=== PATIENT | male | born 1960 | race Caucasian/White ===

== ENCOUNTER 2021-12-18 09:34 | Inpatient (IN) | payer OTHER, MEDICAID, SELFPAY ==
[2021-12-18] VITALS (38 sets, daily range): BP systolic 128–200; BP diastolic 66–103; PULSE 75–99; RESP 14–42; TEMP 36.1–36.6; O2SAT 80–99; BMI 28.5; BMI 26.9
--- NOTE | 2021-12-18 | DI.RAD.S_ITS ---
PROCEDURE: XR CHEST 1V INDICATIONS: POST THORACENTISIS TECHNIQUE: One view of the chest was acquired. COMPARISON: [facility], , US THORACENTESIS, 12/18/2021, 13:38. [facility], , XR CHEST 1V, 12/18/2021, 9:48. FINDINGS: Left-sided pleural effusion has significantly decreased in the interval since prior study. No visible pneumothorax. Airspace opacities have not significantly changed. Small right pleural effusion is stable. IMPRESSION: Decreased size of left pleural effusion status post thoracentesis. No pneumothorax. Remaining findings unchanged. Dictated by: Paulie Priest M.D. on 12/18/2021 at 15:21 Approved by: Paulie Priest M.D. on 12/18/2021 at 15:22
--- NOTE | 2021-12-18 09:43 | DI.RAD.S_ITS ---
PROCEDURE: XR CHEST 1V INDICATIONS: short of breath TECHNIQUE: One view of the chest was acquired. COMPARISON: [facility], , CHEST 2 VIEW, 11/25/2017, 15:49. FINDINGS: Surgical changes and devices: None. Lungs and pleura: Bilateral patchy pulmonary infiltrates present. Blunting of both costophrenic angles noted. Low lung volumes accentuate pulmonary interstitium and heart size. Mediastinum: Mediastinal contours appear normal. Heart size is normal. Atherosclerotic vascular calcification noted in the aortic arch. Bones and chest wall: No suspicious bony lesions. Overlying soft tissues appear unremarkable. Generalized decrease in osseous mineralization noted. IMPRESSION: Patchy bilateral pulmonary infiltrates and small bibasilar pleural effusions, consistent with pneumonia Approved by: Elie Huang M.D. on 12/18/2021 at 9:42
[2021-12-18 10:12] LABS: COVID19 -Nasal RAPID POSITIVE (Negative)
--- NOTE | 2021-12-18 10:20 | ED_ITS ---
HPI - Altered Mental Status General Chief Complaint: Altered Mental Status Stated Complaint: altered mental status Time Seen by Provider: 12/18/21 09:43 Source: patient and EMS Mode of arrival: EMS History of Present Illness HPI narrative: Patient is a 61-year-old male insulin-dependent diabetic, hypertension, COPD on home O2 with 2 L, presenting today with altered mental status. EMS reports that he has had glucose problems last couple of days they have run on him further hypoglycemia. Today family reports that his glucose was 600 they gave him 20 units of NovoLog and about 35 minutes later glucose was than 16 and he was unresponsive. EMS was able to give him dextrose he was Perking up more. However he is having more increasing shortness of breath requiring 4-5 L nasal cannula. The patient denies any pain. He does report some increased shortness of breath. He has chronic infection and foot problems but does not seem to be acute. He has no abdominal pain. He has no chest pain or palpitations. He denies any worsening cough although he sounds coarse. He knows it is the year 2021 he is able to follow commands. Glucose remains low in the 50s to 60s in the emergency department he given a sandwich immediately, and is closely monitored. Patient was seen and evaluated [facility] on December 14 for similar prese ntation with hypoglycemia found to be short of breath he was monitored overnight with diuresis and albuterol. Awaiting for bed availability at that particular hospital patient eventually improved and discharged home. Related Data Allergies Allergy/AdvReac Type Severity Reaction Status Date / Time No Known Drug Allergies Allergy Verified 12/18/21 10:44 Review of Systems Review of Systems ROS Unobtainable: All systems reviewed & are unremarkable except as noted in HPI and below Constitutional Constitutional: Reports as per HPI, Reports fatigue, Denies headache(s), Reports lethargy and Denies weight gain ENT Ears, Nose, Mouth, and Throat: Denies vertigo, Denies dizziness, Denies headache(s) and Denies sore throat Cardiovascular Cardiovascular: Denies chest pain, Denies irregular heart rhythm and Reports dyspnea Respiratory Respiratory: Reports as per HPI, Reports chest congestion, Reports cough, Reports dyspnea and Reports wheezing Gastrointestinal Gastrointestinal: Denies abdominal pain, Denies nausea and Denies vomiting Genitourinary Genitourinary: Denies urinary frequency and Denies urinary hesitancy Musculoskeletal Musculoskeletal: Denies arthralgias Integumentary/Breasts Skin/Breast: Reports as per HPI and Reports wounds (chronic lower extremity wounds) Neurologic Neurologic: Denies vertigo, Denies dizziness and Denies headache(s) Endocrine Endocrine: Reports fatigue Allergic/Immunologic Allergic/Immunologic: Reports wheezing Patient History Social History Smoking Status: Former smoker alcohol intake: never Smoking Status: Current every day smoker tobacco type: cigarettes Substance Use Type: does not use Exam Initial Vital Signs Initial Vital Signs: Vital Signs Temperature 96.9 F L 12/18/21 09:34 Pulse Rate 85 12/18/21 09:34 Respiratory Rate 22 12/18/21 09:34 Blood Pressure 173/87 H 12/18/21 09:34 Pulse Oximetry 84 L 12/18/21 09:34 GENERAL: Chronically ill 61-year-old male appears older than stated age HEENT: Head atraumatic,EOMI, pupils reactive, face symmetric, [moist] mucous membranes CARDIOVASCULAR: Regular rate and rhythm without murmurs, rubs or gallops. RESPIRATORY: Coarse breath sounds bilaterally with decreased breath sounds on the left ABDOMEN: Soft, nontender. Normoactive bowel sounds all 4 quadrants. No guarding or rebound. : No CVA tenderness EXTREMITIES: Normal range of motion, no clubbing or edema. Neurovascularly intact NEUROLOGICAL: Alert and oriented x4. 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 SKIN: Chronic wounds bilateral lower extremities no erythema significant dry skin Course Orders Ordered: ED Orders 12/18/21 10:23 Blood Culture Stat 12/18/21 10:48 D Dimer Stat 12/18/21 10:58 PT [Prothrombin Time INR] Stat PTT [Partial Thromboplastin Time] Stat 12/18/21 11:20 CT head/brain wo con Stat 12/18/21 11:38 CT angio chest PE protocol Stat 12/18/21 12:45 ABG [Arterial Blood Gas] Stat 12/18/21 12:59 US thoracentesis Stat 12/18/21 13:00 Urinalysis and Microscopic Stat Urine Drug Screen, Rapid Stat Acetaminophen (Acetaminophen 325 Mg Tablet) 650 mg PO Q6HR PRN PRN Reason: pain Albuterol (Albuterol 2.5 Mg/3 Ml Neb (Adult)) 2.5 mg INH [id number] PRN PRN Reason: Shortness Of Breath Albuterol/Ipratropium (Albuterol/Ipratropium 3 Ml Ampul) 3 ml INH [id number] [facility] Enoxaparin Sodium (Enoxaparin 40 Mg/0.4 Ml Syringe) 40 mg SUBCUT DAILY [facility] Furosemide (Furosemide 40 Mg/4 Ml Vial) 40 mg IV Q12HR VIET Dextrose (D10w) 1,000 mls @ 100 mls/hr IV CONT [facility] Last Infusion: 12/18/21 15:50 Dose: 0 mls/hr Documented by: Infusion: 12/18/21 14:59 Dose: 75 mls/hr Documented by: Infusion: 12/18/21 13:30 Dose: 125 mls/hr Documented by: Infusion: 12/18/21 11:39 Dose: 150 mls/hr Documented by: Admin: 12/18/21 10:52 Dose: 100 mls/hr Documented by: MANISH Piperacillin Sod/Tazobactam (Sod 3.375 gm/ Sodium Chloride) 100 mls @ 25 mls/hr IV Q8H [facility] Azithromycin 500 mg/ Dextrose 250 mls @ 250 mls/hr IV Q24H [facility] Last Admin: 12/18/21 17:02 Dose: 250 mls/hr Documented by: SEJAL Dextrose (D10w) 250 mls @ 999 mls/hr IV PRN PRN PRN Reason: Hypoglycemia Vancomycin HCl 1,750 mg/ (Sodium Chloride) 500 mls @ 250 mls/hr IV Q12H [facility] Insulin Human Lispro (Insulin Lispro 100 Unit/Ml 3ml Vial) 0 unit SUBCUT ACHS [facility]; Protocol Prednisone (Prednisone 20 Mg Tablet) 40 mg PO DAILY [facility] Vancomycin HCl (Vancomycin Trough) 1 request [facility] Stop: 12/19/21 04:31 Vancomycin HCl (Vancomycin Peak) 1 request [facility] Stop: 12/19/21 07:01 Discontinued Medications Albuterol/Ipratropium (Albuterol/Ipratropium 3 Ml Ampul) 3 ml INH NOW ONE Stop: 12/18/21 10:34 Last Admin: 12/18/21 10:42 Dose: 3 ml Documented by: JEANA Dexamethasone (Dexamethasone 10 Mg/Ml Vial) 6 mg IV NOW ONE Stop: 12/18/21 10:22 Last Admin: 12/18/21 10:53 Dose: 6 mg Documented by: MANISH Dexamethasone (Dexamethasone 10 Mg/Ml Vial) 6 mg IV DAILY [facility] Dextrose (Dextrose 50 % In Water 25 Gm/50 Ml Syringe) 25 gm IV PRN PRN PRN Reason: Hypoglycemia Furosemide (Furosemide 40 Mg/4 Ml Vial) 20 mg IV NOW ONE Stop: 12/18/21 11:05 Last Admin: 12/18/21 12:19 Dose: 20 mg Documented by: SHASHANK Sodium Chloride (Normal Saline 0.9%) 1,000 mls @ 150 mls/hr IV CONT VIET Last Admin: 12/18/21 10:57 Dose: Not Given Documented by: MANISH Remdesivir 200 mg/ Sodium (Chloride) 250 mls @ 250 mls/hr IV NOW ONE Stop: 12/18/21 10:22 Last Infusion: 12/18/21 12:20 Dose: 0 mls/hr Documented by: Admin: 12/18/21 10:52 Dose: 250 mls/hr Documented by: MANISH Piperacillin Sod/Tazobactam (Sod 4.5 gm/ Sodium Chloride) 100 mls @ 200 mls/hr IV NOW ONE Stop: 12/18/21 11:05 Last Infusion: 12/18/21 13:07 Dose: 0 mls/hr Documented by: Infusion: 12/18/21 12:25 Dose: 200 mls/hr Documented by: Infusion: 12/18/21 12:21 Dose: 0 mls/hr Documented by: Admin: 12/18/21 12:20 Dose: 200 mls/hr Documented by: SHASHANK Remdesivir 100 mg/ Sodium (Chloride) 250 mls @ 250 mls/hr IV DAILY [facility] Stop: 12/22/21 09:59 Magnesium Sulfate (Magnesium Sulfate) 2 gm in 50 mls @ 25 mls/hr IV NOW ONE Stop: 12/18/21 18:50 Last Admin: 12/18/21 17:02 Dose: 25 mls/hr Documented by: SEJAL Cosigned by: GLORIA Potassium Chloride (Potassium Chloride 10 Meq Tab) 30 meq PO NOW ONE Stop: 12/18/21 16:53 Last Admin: 12/18/21 17:02 Dose: 30 meq Documented by: MSTEWART Vancomycin HCl (Vancomycin Per Pharmacy) 1 request MISC NOW ONE Stop: 12/18/21 15:37 Vital Signs Vital signs: Vital Signs - 8 hr 12/18/21 11:18 12/18/21 11:30 12/18/21 12:00 Pulse Rate 81 77 Respiratory Rate 24 19 Blood Pressure Pulse Oximetry 90 L 91 86 L 12/18/21 12:06 12/18/21 12:20 12/18/21 12:30 Pulse Rate 78 79 80 Respiratory Rate 17 16 32 H Blood Pressure 195/103 H 200/95 H Pulse Oximetry 93 94 97 12/18/21 12:40 12/18/21 12:45 12/18/21 13:00 Pulse Rate 80 82 81 Respiratory Rate 28 H 24 26 H Blood Pressure 168/88 H 167/89 H 168/87 H Pulse Oximetry 95 98 95 12/18/21 13:20 12/18/21 13:30 Pulse Rate 84 Respiratory Rate 24 Blood Pressure 172/96 H Pulse Oximetry 92 MDM - Altered Mental Status Lab Data Result diagrams: 12/18/21 10:10 12/18/21 10:10 Labs: Lab Results 12/18/21 12/18/21 12/18/21 Range/Units 10:00 10:10 10:10 WBC 16.6 H (4.5-11.0) X10^3/uL RBC 3.72 L (4.5-5.9) X10^6/uL Hgb 8.9 L (13.5-17.5) g/dL Hct 28.5 L (41-53) % MCV 76.8 L (80-100) fL MCH 24.0 L (26-34) PG MCHC 31.3 (30-36) % RDW 19.1 H (11.6-14.8) % Plt Count 442 H (150-400) X10^3/uL Neut % (Auto) 91.0 H (50-75) % Lymph % (Auto) 4.6 L (25-40) % Kimble % (Auto) 3.6 (3-14) % Eos % (Auto) 0.5 L (2-4) % Baso % (Auto) 0.3 (0-2) % Neut # (Auto) 89292 H (7150-2923) /uL Lymph # (Auto) 800 L (2664-3049) /uL Kimble # (Auto) 600 (0-900) /uL Eos # (Auto) 100 (0-450) /uL Baso # (Auto) 100 (0-100) /uL PT (10.1-12.7) SECONDS INR (0.9-1.3) APTT (26.4-36.2) SECONDS D-Dimer (<230) ng/mL ABG pH (7.35-7.45) ABG pCO2 (35-45) mmHg ABG pO2 (80-100) mmHg ABG HCO3 (22-26) mmol/L ABG Total CO2 (21-31) mmol/L ABG O2 Saturation (95-100) % ABG Base Excess (-2-2) mmol/L FiO2 Sodium 138 (137-145) mmol/L Potassium 3.6 (3.4-5.1) mmol/L Chloride 103 (98-107) mmol/L Carbon Dioxide 30 (22-32) mmol/L BUN 24 H (9-20) mg/dL Creatinine 0.62 L (0.66-1.25) mg/dL Estimated GFR > 60.0 (>60) mL/min BUN/Creatinine Ratio 38.7 H (6-22) Glucose 33 L* (80-110) mg/dL Hemoglobin A1c (4.0-6.0) % Lactate (0.7-2.1) mmol/L Calcium 7.7 L (8.4-10.2) mg/dL Total Bilirubin 0.3 (0.2-1.3) mg/dL AST 54 (17-59) IU/L ALT 32 (<50) IU/L Alkaline Phosphatase 142 H (38-126) U/L Total Creatine Kinase 54 L (55-170) U/L CK-MB (CK-2) TNP CK-MB (CK-2) Rel Index TNP Troponin I 0.023 (0.01-0.034) ng/mL NT-Pro-B Natriuret Pep 6700 H (<125) pg/mL Total Protein 6.8 (6.3-8.2) g/dL Albumin 2.7 L (3.5-5.0) g/dL Globulin 4.1 (1.7-4.1) g/dL Albumin/Globulin Ratio 0.7 L (1.0-2.8) Procalcitonin 0.50 (<0.5) ng/mL TSH (0.47-4.68) uIU/mL Urine Color Urine Appearance Urine pH (4.5-8.0) Ur Specific [place] (1.000-1.035) Urine Protein (Negative) Urine Glucose (UA) (Negative) g/dL Urine Ketones (NEGATIVE) Urine Occult Blood (Negative) Urine Nitrate (Negative) Urine Bilirubin (NEGATIVE) Urine Urobilinogen (0.2) E.U./dL Ur Leukocyte Esterase (NEGATIVE) Urine RBC (0-5/HPF) Urine WBC (0-5/HPF) Ur Squamous Epith Cells (0-5/HPF) Urine Bacteria (None) Ur Culture Indicated? Salicylates < 1.0 (<20) mg/dL U Opiates 300ng/mL cut (Negative) Ur Oxycodone Screen (Negative) Urine Methadone Screen (Negative) Acetaminophen < 10 (10-30) ug/mL Ur Barbiturates Screen (Negative) U Tricyclic Antidepress (Negative) Ur Phencyclidine Scrn (Negative) Ur Amphetamines Screen (Negative) U Methamphetamines Scrn (Negative) Ur MDMA Scrn (Ecstasy) (Negative) U Benzodiazepines Scrn (Negative) Urine Cocaine Screen (Negative) U Marijuana (THC) Screen (Negative) Ethyl Alcohol < 10 ( - 10) mg/dL SARS-CoV-2 (PCR) Positive H (Negative) 12/18/21 12/18/21 12/18/21 Range/Units 10:10 10:10 10:10 WBC (4.5-11.0) X10^3/uL RBC (4.5-5.9) X10^6/uL Hgb (13.5-17.5) g/dL Hct (41-53) % MCV (80-100) fL MCH (26-34) PG MCHC (30-36) % RDW (11.6-14.8) % Plt Count (150-400) X10^3/uL Neut % (Auto) (50-75) % Lymph % (Auto) (25-40) % Kimble % (Auto) (3-14) % Eos % (Auto) (2-4) % Baso % (Auto) (0-2) % Neut # (Auto) (9039-8938) /uL Lymph # (Auto) (0843-6789) /uL Kimble # (Auto) (0-900) /uL Eos # (Auto) (0-450) /uL Baso # (Auto) (0-100) /uL PT (10.1-12.7) SECONDS INR (0.9-1.3) APTT (26.4-36.2) SECONDS D-Dimer (<230) ng/mL ABG pH (7.35-7.45) ABG pCO2 (35-45) mmHg ABG pO2 (80-100) mmHg ABG HCO3 (22-26) mmol/L ABG Total CO2 (21-31) mmol/L ABG O2 Saturation (95-100) % ABG Base Excess (-2-2) mmol/L FiO2 Sodium (137-145) mmol/L Potassium (3.4-5.1) mmol/L Chloride (98-107) mmol/L Carbon Dioxide (22-32) mmol/L BUN (9-20) mg/dL Creatinine (0.66-1.25) mg/dL Estimated GFR (>60) mL/min BUN/Creatinine Ratio (6-22) Glucose (80-110) mg/dL Hemoglobin A1c 10.7 H (4.0-6.0) % Lactate 1.4 (0.7-2.1) mmol/L Calcium (8.4-10.2) mg/dL Total Bilirubin (0.2-1.3) mg/dL AST (17-59) IU/L ALT (<50) IU/L Alkaline Phosphatase (38-126) U/L Total Creatine Kinase (55-170) U/L CK-MB (CK-2) CK-MB (CK-2) Rel Index Troponin I (0.01-0.034) ng/mL NT-Pro-B Natriuret Pep (<125) pg/mL Total Protein (6.3-8.2) g/dL Albumin (3.5-5.0) g/dL Globulin (1.7-4.1) g/dL Albumin/Globulin Ratio (1.0-2.8) Procalcitonin (<0.5) ng/mL TSH 2.96 (0.47-4.68) uIU/mL Urine Color Urine Appearance Urine pH (4.5-8.0) Ur Specific [place] (1.000-1.035) Urine Protein (Negative) Urine Glucose (UA) (Negative) g/dL Urine Ketones (NEGATIVE) Urine Occult Blood (Negative) Urine Nitrate (Negative) Urine Bilirubin (NEGATIVE) Urine Urobilinogen (0.2) E.U./dL Ur Leukocyte Esterase (NEGATIVE) Urine RBC (0-5/HPF) Urine WBC (0-5/HPF) Ur Squamous Epith Cells (0-5/HPF) Urine Bacteria (None) Ur Culture Indicated? Salicylates (<20) mg/dL U Opiates 300ng/mL cut (Negative) Ur Oxycodone Screen (Negative) Urine Methadone Screen (Negative) Acetaminophen (10-30) ug/mL Ur Barbiturates Screen (Negative) U Tricyclic Antidepress (Negative) Ur Phencyclidine Scrn (Negative) Ur Amphetamines Screen (Negative) U Methamphetamines Scrn (Negative) Ur MDMA Scrn (Ecstasy) (Negative) U Benzodiazepines Scrn (Negative) Urine Cocaine Screen (Negative) U Marijuana (THC) Screen (Negative) Ethyl Alcohol ( - 10) mg/dL SARS-CoV-2 (PCR) (Negative) 12/18/21 12/18/21 12/18/21 Range/Units 10:48 10:58 12:45 WBC (4.5-11.0) X10^3/uL RBC (4.5-5.9) X10^6/uL Hgb (13.5-17.5) g/dL Hct (41-53) % MCV (80-100) fL MCH (26-34) PG MCHC (30-36) % RDW (11.6-14.8) % Plt Count (150-400) X10^3/uL Neut % (Auto) (50-75) % Lymph % (Auto) (25-40) % Kimble % (Auto) (3-14) % Eos % (Auto) (2-4) % Baso % (Auto) (0-2) % Neut # (Auto) (1434-3321) /uL Lymph # (Auto) (7237-7891) /uL Kimble # (Auto) (0-900) /uL Eos # (Auto) (0-450) /uL Baso # (Auto) (0-100) /uL PT 11.9 (10.1-12.7) SECONDS INR 1.1 (0.9-1.3) APTT 27 (26.4-36.2) SECONDS D-Dimer 2263 H (<230) ng/mL ABG pH 7.40 (7.35-7.45) ABG pCO2 45.6 H (35-45) mmHg ABG pO2 72 L (80-100) mmHg ABG HCO3 28 H (22-26) mmol/L ABG Total CO2 30 (21-31) mmol/L ABG O2 Saturation 94 L (95-100) % ABG Base Excess 3.0 H (-2-2) mmol/L FiO2 50 Sodium (137-145) mmol/L Potassium (3.4-5.1) mmol/L Chloride (98-107) mmol/L Carbon Dioxide (22-32) mmol/L BUN (9-20) mg/dL Creatinine (0.66-1.25) mg/dL Estimated GFR (>60) mL/min BUN/Creatinine Ratio (6-22) Glucose (80-110) mg/dL Hemoglobin A1c (4.0-6.0) % Lactate (0.7-2.1) mmol/L Calcium (8.4-10.2) mg/dL Total Bilirubin (0.2-1.3) mg/dL AST (17-59) IU/L ALT (<50) IU/L Alkaline Phosphatase (38-126) U/L Total Creatine Kinase (55-170) U/L CK-MB (CK-2) CK-MB (CK-2) Rel Index Troponin I (0.01-0.034) ng/mL NT-Pro-B Natriuret Pep (<125) pg/mL Total Protein (6.3-8.2) g/dL Albumin (3.5-5.0) g/dL Globulin (1.7-4.1) g/dL Albumin/Globulin Ratio (1.0-2.8) Procalcitonin (<0.5) ng/mL TSH (0.47-4.68) uIU/mL Urine Color Urine Appearance Urine pH (4.5-8.0) Ur Specific [place] (1.000-1.035) Urine Protein (Negative) Urine Glucose (UA) (Negative) g/dL Urine Ketones (NEGATIVE) Urine Occult Blood (Negative) Urine Nitrate (Negative) Urine Bilirubin (NEGATIVE) Urine Urobilinogen (0.2) E.U./dL Ur Leukocyte Esterase (NEGATIVE) Urine RBC (0-5/HPF) Urine WBC (0-5/HPF) Ur Squamous Epith Cells (0-5/HPF) Urine Bacteria (None) Ur Culture Indicated? Salicylates (<20) mg/dL U Opiates 300ng/mL cut (Negative) Ur Oxycodone Screen (Negative) Urine Methadone Screen (Negative) Acetaminophen (10-30) ug/mL Ur Barbiturates Screen (Negative) U Tricyclic Antidepress (Negative) Ur Phencyclidine Scrn (Negative) Ur Amphetamines Screen (Negative) U Methamphetamines Scrn (Negative) Ur MDMA Scrn (Ecstasy) (Negative) U Benzodiazepines Scrn (Negative) Urine Cocaine Screen (Negative) U Marijuana (THC) Screen (Negative) Ethyl Alcohol ( - 10) mg/dL SARS-CoV-2 (PCR) (Negative) 12/18/21 12/18/21 Range/Units 13:00 13:00 WBC (4.5-11.0) X10^3/uL RBC (4.5-5.9) X10^6/uL Hgb (13.5-17.5) g/dL Hct (41-53) % MCV (80-100) fL MCH (26-34) PG MCHC (30-36) % RDW (11.6-14.8) % Plt Count (150-400) X10^3/uL Neut % (Auto) (50-75) % Lymph % (Auto) (25-40) % Kimble % (Auto) (3-14) % Eos % (Auto) (2-4) % Baso % (Auto) (0-2) % Neut # (Auto) (5922-1651) /uL Lymph # (Auto) (1193-5177) /uL [place] # (Auto) (0-900) /uL Eos # (Auto) (0-450) /uL Baso # (Auto) (0-100) /uL PT (10.1-12.7) SECONDS INR (0.9-1.3) APTT (26.4-36.2) SECONDS D-Dimer (<230) ng/mL ABG pH (7.35-7.45) ABG pCO2 (35-45) mmHg ABG pO2 (80-100) mmHg ABG HCO3 (22-26) mmol/L ABG Total CO2 (21-31) mmol/L ABG O2 Saturation (95-100) % ABG Base Excess (-2-2) mmol/L FiO2 Sodium (137-145) mmol/L Potassium (3.4-5.1) mmol/L Chloride (98-107) mmol/L Carbon Dioxide (22-32) mmol/L BUN (9-20) mg/dL Creatinine (0.66-1.25) mg/dL Estimated GFR (>60) mL/min BUN/Creatinine Ratio (6-22) Glucose (80-110) mg/dL Hemoglobin A1c (4.0-6.0) % Lactate (0.7-2.1) mmol/L Calcium (8.4-10.2) mg/dL Total Bilirubin (0.2-1.3) mg/dL AST (17-59) IU/L ALT (<50) IU/L Alkaline Phosphatase (38-126) U/L Total Creatine Kinase (55-170) U/L CK-MB (CK-2) CK-MB (CK-2) Rel Index Troponin I (0.01-0.034) ng/mL NT-Pro-B Natriuret Pep (<125) pg/mL Total Protein (6.3-8.2) g/dL Albumin (3.5-5.0) g/dL Globulin (1.7-4.1) g/dL Albumin/Globulin Ratio (1.0-2.8) Procalcitonin (<0.5) ng/mL TSH (0.47-4.68) uIU/mL Urine Color Yellow Urine Appearance Clear Urine pH 6.5 (4.5-8.0) Ur Specific [place] 1.015 (1.000-1.035) Urine Protein 2+ H (Negative) Urine Glucose (UA) Negative (Negative) g/dL Urine Ketones Negative (NEGATIVE) Urine Occult Blood Trace-lysed (Negative) Urine Nitrate Negative (Negative) Urine Bilirubin Negative (NEGATIVE) Urine Urobilinogen 0.2 (0.2) E.U./dL Ur Leukocyte Esterase Negative (NEGATIVE) Urine RBC 0-1/hpf (0-5/HPF) Urine WBC 0-1/hpf (0-5/HPF) Ur Squamous Epith Cells 0-1 /hpf (0-5/HPF) Urine Bacteria None seen (None) Ur Culture Indicated? Cult not indicated Salicylates (<20) mg/dL U Opiates 300ng/mL cut Negative (Negative) Ur Oxycodone Screen Negative (Negative) Urine Methadone Screen Negative (Negative) Acetaminophen (10-30) ug/mL Ur Barbiturates Screen Negative (Negative) U Tricyclic Antidepress Negative (Negative) Ur Phencyclidine Scrn Negative (Negative) Ur Amphetamines Screen Negative (Negative) U Methamphetamines Scrn Negative (Negative) Ur MDMA Scrn (Ecstasy) Negative (Negative) U Benzodiazepines Scrn Negative (Negative) Urine Cocaine Screen Negative (Negative) U Marijuana (THC) Screen Negative (Negative) Ethyl Alcohol ( - 10) mg/dL SARS-CoV-2 (PCR) (Negative) Point of Care Testing Glucose POC 205 Imaging Data Chest x-ray: Radiologist's Impression: PROCEDURE:? XR CHEST 1V ? INDICATIONS:? short of breath ? TECHNIQUE:? One view of the chest was acquired.? ? COMPARISON:? [facility], , CHEST 2 VIEW, 11/25/2017, 15:49. ? FINDINGS:? ? Surgical changes and devices:? None.? ? Lungs and pleura:? Bilateral patchy pulmonary infiltrates present.? Blunting of both costophrenic angles noted.? Low lung volumes accentuate pulmonary interstitium and heart size. ? Mediastinum:? Mediastinal contours appear normal.? Heart size is normal.? Atherosclerotic vascular calcification noted in the aortic arch. ? Bones and chest wall:? No suspicious bony lesions.? Overlying soft tissues appear unremarkable.? Generalized decrease in osseous mineralization noted. ? IMPRESSION:? ? Patchy bilateral pulmonary infiltrates and small bibasilar pleural effusions, consistent with pneumonia ? ? ? Approved by: Elie Huang M.D. on 12/18/2021 at 9:42? CT scan - head: Radiologist's Impression: PROCEDURE:? CT HEAD/BRAIN WO CON ? INDICATIONS:? change in metal status ? TECHNIQUE:? Noncontrast 4.5 mm thick angled axial sections acquired from the foramen magnum to the vertex, with coronal and sagittal reformats.? For radiation dose reduction, the following was used:? automated exposure control, adjustment of mA and/or kV according to patient size.? ? COMPARISON:? None. ? FINDINGS:? Image quality:? Excellent.? ? CSF spaces:? Basal cisterns are patent.? No extra-axial fluid collections.? The ventricles are symmetric in size and shape.? ? Brain:? No intracranial bleeds or masses.? There is cerebral volume loss for age, with resultant ventricular and sulcal prominence.? There are periventricular and deep white matter chronic small vessel ischemic changes.? There is intracranial internal carotid artery atherosclerosis.? ? Skull and face:? Calvarium and visualized facial bones appear intact, without suspicious lesions.? ? Sinuses:? Visualized sinuses and mastoids are clear.? ? IMPRESSION:? 1. No acute intracranial abnormality. 2. Cerebral volume loss and small vessel ischemic changes.? Dictated by: Gelacio Dias M.D. on 12/18/2021 at 12:12 ? ? Approved by: Gelacio Dias M.D. on 12/18/2021 at 12:13 ? CT scan - chest: Radiologist's Impression: PROCEDURE:? CT ANGIO CHEST PE PROTOCOL ? INDICATIONS:? hypoxia covid ? TECHNIQUE:? After the administration of intravenous contrast, 2 mm thick sections acquired from the pulmonary apices to the posterior costophrenic angles.? 3-dimensional maximum intensity projection (MIP) coronal and sagittal reformats were then acquired through the thorax.? For radiation dose reduction, the following was used:? automated exposure control, adjustment of mA and/or kV according to patient size.? ? COMPARISON:? None. ? FINDINGS:? Image quality:? Excellent.? ? Pulmonary arteries:? Pulmonary arteries are normal in size, and demonstrate no intraluminal filling defects to suggest central pulmonary embolism.? ? Lungs and pleura:? Diffuse ground-glass opacities are seen consistent with patient history of COVID-19.? There is a large left pleural effusion and consolidative atelectasis versus consolidative pneumonia of the left lower lobe. ? Mediastinum:? Heart size is normal, without pericardial effusion.? The coronary arteries have atherosclerotic calcifications.? No mediastinal or hilar adenopathy.? Thoracic aorta is normal in caliber and enhancement.? Esophagus is normal in caliber, without hiatal hernia.? ? Bones and chest wall:? No suspicious bony lesions.? Ribs and thoracic spine appear intact throughout.? Thyroid gland is normal.? No axillary or supraclavicular adenopathy.? ? Abdomen:? Visualized upper abdominal solid organs appear normal in the early arterial phase of enhancement.? ? IMPRESSION:? 1. Diffuse bilateral airspace opacities consistent with patient history of COVID-19. 2. Large left pleural effusion. 3. Consolidative atelectasis versus consolidative pneumonia of the left lower lobe.? ? ? Dictated by: Gelacio Dias M.D. on 12/18/2021 at 12:13 ? ? Approved by: Gelacio Dias M.D. on 12/18/2021 at 12:16 ? ECG Data Attestation: I personally reviewed and interpreted this ECG as follows: Prior ECG tracings: not available for review Interpretation: Sinus rhythm rate 82 GA interval 172 QRS 82 QTC 436 PVC wandering baseline MDM Narrative Medical decision making narrative: The patient initially found to be hypoglycemic. He has eating glucose continues to be quite variable placed on D10 which finally does stabilize his glucose. He also is becoming more short of breath. Chest x-ray shows patchy infiltrates. CT angio was done for elevated D-dimer and worsening hypoxia which confirms large left pleural effusions. No pulmonary embolism is identified. BNP is also elevated so possible congestive heart failure as well. Patient is given Lasix. Thoracentesis is ordered at request hospitalist. The patient is placed on high- flow nasal cannula which does seem to help. He is also found to be COVID positive he is given remdesivir and dexamethasone. With leukocytosis and patchy infiltrate concern for possible pneumonia patient is given Zosyn here in the emergency department. Blood pressure remains stable lactate surprisingly 1.4 and he has a normal troponin. Patient's respiratory status and hypoglycemia have stabilized in the emergency department. Dr. Millan, accepts patient to the ICU. Discharge Plan Departure Patient Disposition: Admitted As Inpatient Clinical Impression: Hypoxia, COVID-19, Pleural effusion Admit Date/Time: 12/18/21 13:34 Admit Provider: Medardo Millan
[2021-12-18 10:22] LABS: Add Manual Diff / Slide Review NO; Basophils Absolute Auto 100 /uL (0-100); Basophils Percent Auto 0.3 % (0-2); Eosinophils Absolute Auto 100 /uL (0-450); Eosinophils Percent Auto 0.5 % (2-4); Hematocrit 28.5 % (41-53); Hemoglobin 8.9 g/dL (13.5-17.5); Lymphocytes Absolute Auto 800 /uL (1100-4500); Lymphocytes Percent Auto 4.6 % (25-40); Mean Corpuscular HGB Conc 31.3 % (30-36); Mean Corpuscular Volume 76.8 fL (80-100); Monocytes Absolute Auto 600 /uL (0-900); Monocytes Percent Auto 3.6 % (3-14); Neutrophils Absolute Auto 15100 /uL (1500-7000); Platelet Count 442 X10^3/uL (150-400); Red Blood Cell Count 3.72 X10^6/uL (4.5-5.9); Red Cell Distribution Width 19.1 % (11.6-14.8); White Blood Cell Count 16.6 X10^3/uL (4.5-11.0)
[2021-12-18 10:38] LABS: Hemoglobin A1C% w Est Avg Glu 10.7 % (4.0-6.0)
[2021-12-18 10:41] LABS: Lactate (Lactic Acid) 1.4 mmol/L (0.7-2.1)
[2021-12-18] MEDS: ALBUTEROL/IPRATROPIUM 3 ML AMPUL INH ×3 (10:42→23:45)
[2021-12-18 10:43] LABS: Acetaminophen < 10 ug/mL (10-30); Alanine Aminotransferase 32 IU/L (<50); Albumin 2.7 g/dL (3.5-5.0); Albumin Globulin Ratio 0.7 (1.0-2.8); Alkaline Phosphatase 142 U/L (38-126); Aspartate Aminotransferase 54 IU/L (17-59); BUN Creatinine Ratio 38.7 (6-22); Bilirubin Total 0.3 mg/dL (0.2-1.3); Blood Urea Nitrogen 24 mg/dL (9-20); Calcium 7.7 mg/dL (8.4-10.2); Carbon Dioxide 30 mmol/L (22-32); Chloride 103 mmol/L (98-107); Creatine Kinase 54 U/L (55-170); Estimated Glomerular Filt Rate > 60.0 mL/min (>60); Ethanol (ETOH) < 10 mg/dL; Globulin 4.1 g/dL (1.7-4.1); Potassium 3.6 mmol/L (3.4-5.1); Salicylate < 1.0 mg/dL (<20); Sodium 138 mmol/L (137-145); Total Protein 6.8 g/dL (6.3-8.2)
[2021-12-18 10:51] LABS: HEMOLYSIS 19 (0-50)
[2021-12-18] MEDS: DEXTROSE 10 % IN WATER 1,000 ML 100 ML IV (10:52)
[2021-12-18] MEDS: REMDESIVIR 200 MG in SODIUM CHLORIDE 0.9% 210 ML 250 ML IV (10:52)
[2021-12-18 10:53] LABS: Glucose 33 mg/dL (80-110)
[2021-12-18] MEDS: DEXAMETHASONE 10 MG/ML VIAL 6 MG IV (10:53)
[2021-12-18 10:56] LABS: NT-proBNP (BNP-Adult 18+) 6700 pg/mL (<125); Troponin I 0.023 ng/mL (0.01-0.034)
[2021-12-18 11:13] LABS: D Dimer 2263 ng/mL (<230)
[2021-12-18 11:13] LABS: Thyroid Stimulating Hormone 2.96 uIU/mL (0.47-4.68)
--- NOTE | 2021-12-18 11:18 | PC.NURSE ---
juice with 2 packs of sugar given to patient. pt is awake with stimulation. pt did drink the glass of juice.
--- NOTE | 2021-12-18 11:20 | DI.CT.S_ITS ---
PROCEDURE: CT HEAD/BRAIN WO CON INDICATIONS: change in metal status TECHNIQUE: Noncontrast 4.5 mm thick angled axial sections acquired from the foramen magnum to the vertex, with coronal and sagittal reformats. For radiation dose reduction, the following was used: automated exposure control, adjustment of mA and/or kV according to patient size. COMPARISON: None. FINDINGS: Image quality: Excellent. CSF spaces: Basal cisterns are patent. No extra-axial fluid collections. The ventricles are symmetric in size and shape. Brain: No intracranial bleeds or masses. There is cerebral volume loss for age, with resultant ventricular and sulcal prominence. There are periventricular and deep white matter chronic small vessel ischemic changes. There is intracranial internal carotid artery atherosclerosis. Skull and face: Calvarium and visualized facial bones appear intact, without suspicious lesions. Sinuses: Visualized sinuses and mastoids are clear. IMPRESSION: 1. No acute intracranial abnormality. 2. Cerebral volume loss and small vessel ischemic changes. Dictated by: Gelacio Dias M.D. on 12/18/2021 at 12:12 Approved by: Gelacio Dias M.D. on 12/18/2021 at 12:13
--- NOTE | 2021-12-18 11:38 | DI.CT.S_ITS ---
PROCEDURE: CT ANGIO CHEST PE PROTOCOL INDICATIONS: hypoxia covid TECHNIQUE: After the administration of intravenous contrast, 2 mm thick sections acquired from the pulmonary apices to the posterior costophrenic angles. 3-dimensional maximum intensity projection (MIP) coronal and sagittal reformats were then acquired through the thorax. For radiation dose reduction, the following was used: automated exposure control, adjustment of mA and/or kV according to patient size. COMPARISON: None. FINDINGS: Image quality: Excellent. Pulmonary arteries: Pulmonary arteries are normal in size, and demonstrate no intraluminal filling defects to suggest central pulmonary embolism. Lungs and pleura: Diffuse ground-glass opacities are seen consistent with patient history of COVID-19. There is a large left pleural effusion and consolidative atelectasis versus consolidative pneumonia of the left lower lobe. Mediastinum: Heart size is normal, without pericardial effusion. The coronary arteries have atherosclerotic calcifications. No mediastinal or hilar adenopathy. Thoracic aorta is normal in caliber and enhancement. Esophagus is normal in caliber, without hiatal hernia. Bones and chest wall: No suspicious bony lesions. Ribs and thoracic spine appear intact throughout. Thyroid gland is normal. No axillary or supraclavicular adenopathy. Abdomen: Visualized upper abdominal solid organs appear normal in the early arterial phase of enhancement. IMPRESSION: 1. Diffuse bilateral airspace opacities consistent with patient history of COVID-19. 2. Large left pleural effusion. 3. Consolidative atelectasis versus consolidative pneumonia of the left lower lobe. Dictated by: Gelacio Dias M.D. on 12/18/2021 at 12:13 Approved by: Gelacio Dias M.D. on 12/18/2021 at 12:16
[2021-12-18] MEDS: FUROSEMIDE 40 MG/4 ML VIAL 20 MG IV (12:19)
[2021-12-18] MEDS: PIPERACILLIN/TAZO 4.5 GM in SODIUM CHLORIDE 0.9% 100 ML 200 ML IV (12:20)
[2021-12-18 12:21] LABS: INR 1.1 (0.9-1.3); Prothrombin Time 11.9 SECONDS (10.1-12.7)
[2021-12-18 12:24] LABS: PTT Partial Thromboplastin Tim 27 SECONDS (26.4-36.2)
--- NOTE | 2021-12-18 12:59 | DI.US.S_ITS ---
PROCEDURE: US THORACENTESIS INDICATIONS: LEFT PLEURAL EFFUSION TECHNIQUE: The indications, alternatives, benefits, risks, and complications of the procedure were explained to the patient. Written informed consent was obtained and placed in the chart. The chest was examined sonographically, and an appropriate site was chosen for thoracentesis. The skin was prepared and draped in the usual sterile fashion, and 1% lidocaine was infiltrated from the skin down through the pleural surface. A 19-gauge catheter-covered needle was then introduced into the pleural space, the catheter was advanced and the needle was withdrawn, and thereafter pleural fluid was aspirated. The catheter was then removed and a dressing was applied. COMPARISON: [facility], CR, XR CHEST 1V, 12/18/2021, 9:48. FINDINGS: Access site: Left hemithorax. Needle: One-Step centesis catheter with introducer needle. Fluid volume and description: 1600 mL; clear. Fluid sent for diagnostic testing: Not ordered by referring physician. Medications: 1% lidocaine for local anaesthesia. Complications: None; post-procedural chest radiograph is pending to assess for pneumothorax. IMPRESSION: Successful ultrasound-guided thoracentesis. Dictated by: Elvia Begum M.D. on 12/18/2021 at 14:35 Approved by: Elvia Begum M.D. on 12/18/2021 at 14:35
[2021-12-18 13:07] LABS: Appearance Urine UA CLEAR; Bilirubin Urine UA NEGATIVE (NEGATIVE); Color Urine UA YELLOW; Glucose Urine UA NEGATIVE (Negative); Ketones Urine UA NEGATIVE (NEGATIVE); Leukocyte Esterase Urine UA NEGATIVE (NEGATIVE); Nitrite Urine UA NEGATIVE (Negative); Occult Blood Urine UA TRACE-LYSED (Negative); Protein Urine UA 2+ (Negative); Specific Gravity Urine UA 1.015 (1.000-1.035); Urobilinogen Urine UA 0.2 E.U./dL (0.2); pH Urine UA 6.5 (4.5-8.0)
[2021-12-18 13:09] LABS: HCO3 ABG 28 mmol/L (22-26); PCO2 ABG 45.6 mmHg (35-45); PO2 ABG 72 mmHg (80-100); TCO2 ABG 30 mmol/L (21-31)
[2021-12-18 13:10] LABS: Fractionated Inspired Oxygen 50; Oxygen Saturation ABG 94 % (95-100)
[2021-12-18 13:14] LABS: UR Morphine/Opiate cutoff 300 Negative (Negative); Ur Creatinine Normal (Normal); Ur Specific Gravity Normal (Normal); Urine Amphetamines Negative (Negative); Urine Barbiturates Negative (Negative); Urine Benzodiazepines Negative (Negative); Urine Cocaine Negative (Negative); Urine MDMA Negative (Negative); Urine Methadone Negative (Negative); Urine Methamphetamines Negative (Negative); Urine Oxycodone Negative (Negative); Urine Phencyclidine Negative (Negative); Urine Tetrahydrocannabinol Negative (Negative); Urine Tricyclic Antidepressant Negative (Negative); Urine pH Normal (Normal)
--- NOTE | 2021-12-18 13:16 | PC.NURSE ---
Patient upper and lower extremities +3 pitting edema. Pt has dry skin on lower legs, wounds with skin missing on bottom left foot and right toes, and black skin on some toes.
--- NOTE | 2021-12-18 13:16 | PM.CN.EICU ---
History of Present Illness Consult details Chief complaint: altered mental status :: This patient was seen via real time interactive two-way audiovisual telecommunication. HPI: 61 yo Man with PMH of COPD on home supplemental O2 of 2 L nc, CHF, and DM (covid unvaccinated) who was brought in for hypoglycemia. According to family his BG was 600 today and he got insulin but afterwards it dropped to 16. He was brought to ER. In ER his BG was 30's. He got startedon D10 at 100cc/hr and now his BG is > 100 and his mental status is improving. His pox was in the 80s o 4-5L nc. He was placed on HFNC 50L FIO2 50%. ABG on FIO2 of 50% is 7.40/45/72. COVID test came back +. He had chest CTA which was neg for PE but did show diffuse GGO consistent withe COVID, large L pleural effusion, and LLL atelectasis vs consolidation. BP 160-200s/80-90s and HR 70-80s. WBC is 16. Pt. given decadron, Remdesivir, Zosyn and Lasixin ER and admitted to ICU. Pt. started on D10 100cc/hr for hypoglycemia. Pt. is a poor historian but patient may have recently been diagnosed with COVID at another hospital and it's unclear if he got treatement for it. Hospitalist is working on obtaining records from outside hospital. ROS: no chest pain or abd pain. + sob. No new cough. PFSH Social History Smoking Status: Former smoker alcohol intake: never Current Medications Current Medications Medications: Visit Medications (administered) Generic Name Dose Route Start Last Admin Trade Name Freq PRN Reason Stop Dose Admin Sodium Chloride 1,000 mls @ 150 mls/hr 12/18/21 09:45 12/18/21 10:57 Normal Saline 0.9% IV Not Given CONT VIET Dextrose 1,000 mls @ 100 mls/hr 12/18/21 11:00 12/18/21 11:39 D10w IV 150 mls/hr CONT VIET Infusion Exam Vital Signs (past 8 hours): - 12/18/21 09:34 12/18/21 10:00 12/18/21 10:30 Temperature 96.9 F L Pulse Rate 85 78 75 Respiratory Rate 22 14 17 Blood Pressure 173/87 H Pulse Oximetry 84 L 92 93 12/18/21 10:59 12/18/21 11:00 12/18/21 11:07 Temperature Pulse Rate 78 82 76 Respiratory Rate 24 26 H 22 Blood Pressure 164/81 H Pulse Oximetry 92 89 L 93 12/18/21 11:18 12/18/21 11:30 12/18/21 12:00 Temperature Pulse Rate 81 77 Respiratory Rate 24 19 Blood Pressure Pulse Oximetry 90 L 91 86 L 12/18/21 12:06 12/18/21 12:20 12/18/21 12:30 Temperature Pulse Rate 78 79 80 Respiratory Rate 17 16 32 H Blood Pressure 195/103 H 200/95 H Pulse Oximetry 93 94 97 12/18/21 12:40 12/18/21 13:00 Temperature Pulse Rate 80 81 Respiratory Rate 28 H 26 H Blood Pressure 168/88 H 168/87 H Pulse Oximetry 95 95 Oxygen Delivery Method Nasal Cannula Oxygen Flow Rate 6.5 Narrative Exam Narrative: Patient seen after arrival to ICU. He is resting comfortably in bed, pox 97% on HFNC. NO use of accessory resp muscles. Objective Labs Result Diagrams: 12/18/21 10:10 12/18/21 10:10 Labs: Laboratory Results - last 24 hr 12/18/21 12/18/21 12/18/21 10:00 10:10 10:10 WBC 16.6 H RBC 3.72 L Hgb 8.9 L Hct 28.5 L MCV 76.8 L MCH 24.0 L MCHC 31.3 RDW 19.1 H Plt Count 442 H Neut % (Auto) 91.0 H Lymph % (Auto) 4.6 L [place] % (Auto) 3.6 Eos % (Auto) 0.5 L Baso % (Auto) 0.3 Neut # (Auto) 69626 H Lymph # (Auto) 800 L [place] # (Auto) 600 Eos # (Auto) 100 Baso # (Auto) 100 PT INR APTT D-Dimer ABG pH ABG pCO2 ABG pO2 ABG HCO3 ABG Total CO2 ABG O2 Saturation ABG Base Excess FiO2 Sodium 138 Potassium 3.6 Chloride 103 Carbon Dioxide 30 BUN 24 H Creatinine 0.62 L Estimated GFR > 60.0 BUN/Creatinine Ratio 38.7 H Glucose 33 L* Hemoglobin A1c Lactate Calcium 7.7 L Total Bilirubin 0.3 AST 54 ALT 32 Alkaline Phosphatase 142 H Total Creatine Kinase 54 L CK-MB (CK-2) TNP CK-MB (CK-2) Rel Index TNP Troponin I 0.023 NT-Pro-B Natriuret Pep 6700 H Total Protein 6.8 Albumin 2.7 L Globulin 4.1 Albumin/Globulin Ratio 0.7 L Procalcitonin 0.50 TSH Urine Color Urine Appearance Urine pH Ur Specific [place] Urine Protein Urine Glucose (UA) Urine Ketones Urine Occult Blood Urine Nitrate Urine Bilirubin Urine Urobilinogen Ur Leukocyte Esterase Salicylates < 1.0 U Opiates 300ng/mL cut Ur Oxycodone Screen Urine Methadone Screen Acetaminophen < 10 Ur Barbiturates Screen U Tricyclic Antidepress Ur Phencyclidine Scrn Ur Amphetamines Screen U Methamphetamines Scrn Ur MDMA Scrn (Ecstasy) U Benzodiazepines Scrn Urine Cocaine Screen U Marijuana (THC) Screen Ethyl Alcohol < 10 SARS-CoV-2 (PCR) Positive H 12/18/21 12/18/21 12/18/21 10:10 10:10 10:10 WBC RBC Hgb Hct MCV MCH MCHC RDW Plt Count Neut % (Auto) Lymph % (Auto) [place] % (Auto) Eos % (Auto) Baso % (Auto) Neut # (Auto) Lymph # (Auto) [place] # (Auto) Eos # (Auto) Baso # (Auto) PT INR APTT D-Dimer ABG pH ABG pCO2 ABG pO2 ABG HCO3 ABG Total CO2 ABG O2 Saturation ABG Base Excess FiO2 Sodium Potassium Chloride Carbon Dioxide BUN Creatinine Estimated GFR BUN/Creatinine Ratio Glucose Hemoglobin A1c 10.7 H Lactate 1.4 Calcium Total Bilirubin AST ALT Alkaline Phosphatase Total Creatine Kinase CK-MB (CK-2) CK-MB (CK-2) Rel Index Troponin I NT-Pro-B Natriuret Pep Total Protein Albumin Globulin Albumin/Globulin Ratio Procalcitonin TSH 2.96 Urine Color Urine Appearance Urine pH Ur Specific [place] Urine Protein Urine Glucose (UA) Urine Ketones Urine Occult Blood Urine Nitrate Urine Bilirubin Urine Urobilinogen Ur Leukocyte Esterase Salicylates U Opiates 300ng/mL cut Ur Oxycodone Screen Urine Methadone Screen Acetaminophen Ur Barbiturates Screen U Tricyclic Antidepress Ur Phencyclidine Scrn Ur Amphetamines Screen U Methamphetamines Scrn Ur MDMA Scrn (Ecstasy) U Benzodiazepines Scrn Urine Cocaine Screen U Marijuana (THC) Screen Ethyl Alcohol SARS-CoV-2 (PCR) 12/18/21 12/18/21 12/18/21 10:48 10:58 12:45 WBC RBC Hgb Hct MCV MCH MCHC RDW Plt Count Neut % (Auto) Lymph % (Auto) [place] % (Auto) Eos % (Auto) Baso % (Auto) Neut # (Auto) Lymph # (Auto) [place] # (Auto) Eos # (Auto) Baso # (Auto) PT 11.9 INR 1.1 APTT 27 D-Dimer 2263 H ABG pH 7.40 ABG pCO2 45.6 H ABG pO2 72 L ABG HCO3 28 H ABG Total CO2 30 ABG O2 Saturation 94 L ABG Base Excess 3.0 H FiO2 50 Sodium Potassium Chloride Carbon Dioxide BUN Creatinine Estimated GFR BUN/Creatinine Ratio Glucose Hemoglobin A1c Lactate Calcium Total Bilirubin AST ALT Alkaline Phosphatase Total Creatine Kinase CK-MB (CK-2) CK-MB (CK-2) Rel Index Troponin I NT-Pro-B Natriuret Pep Total Protein Albumin Globulin Albumin/Globulin Ratio Procalcitonin TSH Urine Color Urine Appearance Urine pH Ur Specific [place] Urine Protein Urine Glucose (UA) Urine Ketones Urine Occult Blood Urine Nitrate Urine Bilirubin Urine Urobilinogen Ur Leukocyte Esterase Salicylates U Opiates 300ng/mL cut Ur Oxycodone Screen Urine Methadone Screen Acetaminophen Ur Barbiturates Screen U Tricyclic Antidepress Ur Phencyclidine Scrn Ur Amphetamines Screen U Methamphetamines Scrn Ur MDMA Scrn (Ecstasy) U Benzodiazepines Scrn Urine Cocaine Screen U Marijuana (THC) Screen Ethyl Alcohol SARS-CoV-2 (PCR) 12/18/21 12/18/21 13:00 13:00 WBC RBC Hgb Hct MCV MCH MCHC RDW Plt Count Neut % (Auto) Lymph % (Auto) [place] % (Auto) Eos % (Auto) Baso % (Auto) Neut # (Auto) Lymph # (Auto) [place] # (Auto) Eos # (Auto) Baso # (Auto) PT INR APTT D-Dimer ABG pH ABG pCO2 ABG pO2 ABG HCO3 ABG Total CO2 ABG O2 Saturation ABG Base Excess FiO2 Sodium Potassium Chloride Carbon Dioxide BUN Creatinine Estimated GFR BUN/Creatinine Ratio Glucose Hemoglobin A1c Lactate Calcium Total Bilirubin AST ALT Alkaline Phosphatase Total Creatine Kinase CK-MB (CK-2) CK-MB (CK-2) Rel Index Troponin I NT-Pro-B Natriuret Pep Total Protein Albumin Globulin Albumin/Globulin Ratio Procalcitonin TSH Urine Color Yellow Urine Appearance Clear Urine pH 6.5 Ur Specific [place] 1.015 Urine Protein 2+ H Urine Glucose (UA) Negative Urine Ketones Negative Urine Occult Blood Trace-lysed Urine Nitrate Negative Urine Bilirubin Negative Urine Urobilinogen 0.2 Ur Leukocyte Esterase Negative Salicylates U Opiates 300ng/mL cut Negative Ur Oxycodone Screen Negative Urine Methadone Screen Negative Acetaminophen Ur Barbiturates Screen Negative U Tricyclic Antidepress Negative Ur Phencyclidine Scrn Negative Ur Amphetamines Screen Negative U Methamphetamines Scrn Negative Ur MDMA Scrn (Ecstasy) Negative U Benzodiazepines Scrn Negative Urine Cocaine Screen Negative U Marijuana (THC) Screen Negative Ethyl Alcohol SARS-CoV-2 (PCR) Assessment & Plan Assessment & Plan narrative: Assessment COVID PNA Acute on chronic hypoxic respiratory failure Large L pleural effusion possible superimposed bacrerial PNA possible superimposed CHF exacerbation hypoglycemia h/o of DM h/o of CHF Plan [employer]: mental status improving with correction of hypoglycemia, head CT neg CV: -obtain ECHO to evaluate EF -if patient remains hypertensive, consider Nitro paste or nitro drip Pulm: HFNC and titrate for pox of 90-98% -decadron course for COVID ID: COVID PNA and possible superimposed bacterial PNA given WBC of 16 -Remdesivir and baricitinib for COVID (if he didn't get a course at outside hospital) -start empiric abx (VAnco, Zosyn, and Doxy) for HCAP and CAP -abreu culture Heme: daily CBC FEN/Renal: -diurese as tolerated -replace electrolytes as needed Endo: hold insulin for now, titrate D10 drip to maintain euglycemia PPx: jaison Discussed my assessment and plan with Dr. Millan CCT 55 min Time Spent With Patient Critical Care time: I spent a total of [] minutes of critical care time on this patient's care today; this time is exclusive of procedural time.
[2021-12-18 13:20] LABS: Bacteria Urine None Seen; Culture Indicated Urine Cult Not Indicated; RBC Urine 0-1/HPF (0-5/HPF); Squamous Epithelial Cell Urine 0-1 /HPF (0-5/HPF); WBC Urine 0-1/HPF (0-5/HPF)
[2021-12-18 16:39] LABS: Magnesium 1.6 mg/dL (1.6-2.3)
[2021-12-18] MEDS: AZITHROMYCIN 500 MG in DEXTROSE 5% IN WATER 250 ML IV (17:02)
[2021-12-18] MEDS: POTASSIUM CHLORIDE 10 MEQ TAB 30 MEQ PO (17:02)
[2021-12-18] MEDS: MAGNESIUM SULFATE 2 GM/50 ML PIGGYBACK IV (17:02)
--- NOTE | 2021-12-18 17:58 | PM.HP.1 ---
History of Present Illness History of Present Illness Date Patient Seen: 12/18/21 Time Patient Seen: 16:00 Chief complaint: altered mental status Narrative: Mr. Armando is a 61M with PMH DM on insulin, chronic bilateral diabetic foot wounds, COPD on 2L O2, HTN, HL who presents altered and short of breath. He has notably been admitted many times recently to [facility] for similar situations. He has had multiple recent visits to the [facility] in the last couple weeks, he left the hospital on 12/17 as there were no beds. He was admitted with pneumonia, copd, acute on chronic hypoxic respiratory failure and poor diabetes control. Per the notes he is very noncompliant with treatment. He apparently was COVID positive first on November 13, 2021, he is unvaccinated. He is a very poor historian and can provide very little details. Apparently he has had issues with glucose control at home which is common for him. His family reported he had a blood sugar of 600, they gave him 20U novolog and was then 16. He was unresponsive. Apparently his dose of insulin at home is 50U lantus in PM and 20U novolog in AM per old records. He was also short of breath. He was hypoxemic when EMS arrived, placed on 4L, then remained hypoxemic in ED. In the ED workup was done, vitals notable for hypoxemia on arrival and high blood pressure. Labs notable for WBC 16.6, hgb 8.9. Glucose 33. Creatinine 0.62. BNP 6700. COVID positive. Procal 0.50. A1c 10.7. UA negative. CT head with no acute process. CTA chest with patchy bilateral pulmonary infiltrates and large left pleural effusion. As many records were not available, he was initially ordered for remdesivir, dexamethasone, zosyn. He was started IV dextrose due to his blood sugars and they improved. He was placed on heated high flow, he had 1600L drained from left lung in thora, and he was given IV lasix. He was admitted for further treatment. PMH: Type 2 Diabetes on insulin, poorly controlled, chronic diabetic wounds, CHFpEF, HTN, COPD on home oxygen, loculated pleural effusion, hep c s/p treatment Social history: long time smoker, says recently stopped, but notes have noted daily smoking 0.5-1 pack daily since he was 16 Family history: Mother with COPD, DM Patient History Family & Social History Social History: Prior Living Arrangements Mobile home Safety & Behavioral: Feels Safe in Current Yes Environment Been Physically Hurt or No Threatened By a Person Suicidal Ideation Description None Suicide Plan Description No Plan Tobacco & Substance use: Tobacco type cigarettes Smoking Status Former smoker alcohol intake never Substance Use Type does not use Meds Home Medications and Allergies Allergies Allergy/AdvReac Type Severity Reaction Status Date / Time No Known Drug Allergies Allergy Verified 12/18/21 10:44 Review of Systems Review of Systems Narrative: 14 systems reviewed and negative aside from HPI Exam Vital Signs (past 8 hours): - 12/18/21 10:00 12/18/21 10:30 12/18/21 10:59 Temperature Pulse Rate 78 75 78 Respiratory Rate 14 17 24 Blood Pressure Pulse Oximetry 92 93 92 12/18/21 11:00 12/18/21 11:07 12/18/21 11:18 Temperature Pulse Rate 82 76 Respiratory Rate 26 H 22 Blood Pressure 164/81 H Pulse Oximetry 89 L 93 90 L 12/18/21 11:30 12/18/21 12:00 12/18/21 12:06 Temperature Pulse Rate 81 77 78 Respiratory Rate 24 19 17 Blood Pressure 195/103 H Pulse Oximetry 91 86 L 93 12/18/21 12:20 12/18/21 12:30 12/18/21 12:40 Temperature Pulse Rate 79 80 80 Respiratory Rate 16 32 H 28 H Blood Pressure 200/95 H 168/88 H Pulse Oximetry 94 97 95 12/18/21 12:45 12/18/21 13:00 12/18/21 13:20 Temperature Pulse Rate 82 81 Respiratory Rate 24 26 H Blood Pressure 167/89 H 168/87 H 172/96 H Pulse Oximetry 98 95 12/18/21 13:30 12/18/21 13:41 12/18/21 13:46 Temperature Pulse Rate 84 85 84 Respiratory Rate 24 Blood Pressure 178/99 H 167/89 H Pulse Oximetry 92 95 12/18/21 13:51 12/18/21 14:00 12/18/21 14:30 Temperature 97.2 F L 97.2 F L Pulse Rate 82 82 86 Respiratory Rate 30 H 21 Blood Pressure 177/90 H Pulse Oximetry 99 94 95 12/18/21 15:00 12/18/21 15:30 12/18/21 16:00 Temperature 97.3 F L 97.7 F 97.8 F Pulse Rate 88 88 91 H Respiratory Rate 27 H 25 H 31 H Blood Pressure 177/90 H Pulse Oximetry 93 94 98 12/18/21 16:01 12/18/21 16:24 12/18/21 16:30 Temperature Pulse Rate 92 H 90 91 H Respiratory Rate 42 H 26 H 24 Blood Pressure 177/90 H Pulse Oximetry 85 L 95 95 12/18/21 17:00 12/18/21 17:28 12/18/21 17:30 Temperature Pulse Rate 92 H 93 H 94 H Respiratory Rate 24 25 H 34 H Blood Pressure 162/79 H Pulse Oximetry 96 94 92 Fraction of Inspired Oxygen 50 Oxygen Delivery Method Heated High Flow Oxygen Flow Rate 50 Narrative Exam Narrative: GEN: moderate respiratory distress, chronically ill appearing, appears older than stated age HEENT: moist mucous membranes, PERRL NECK: trachea midline, no JVD CV: regular rate and rhythm, no murmurs PULM: coarse breath sounds bilaterally, absent breath sounds left base ABD: soft, nontender, nondistended, no organomegaly EXT: warm and well perfused, with severe chronic wounds of lower extremities that appear severe but no active infection NEURO: slightly altered, no focal deficits Objective Labs Result Diagrams: 12/18/21 10:10 12/18/21 10:10 Labs: Laboratory Results - last 24 hr 12/18/21 12/18/21 12/18/21 10:00 10:10 10:10 WBC 16.6 H RBC 3.72 L Hgb 8.9 L Hct 28.5 L MCV 76.8 L MCH 24.0 L MCHC 31.3 RDW 19.1 H Plt Count 442 H Neut % (Auto) 91.0 H Lymph % (Auto) 4.6 L [place] % (Auto) 3.6 Eos % (Auto) 0.5 L Baso % (Auto) 0.3 Neut # (Auto) 99525 H Lymph # (Auto) 800 L [place] # (Auto) 600 Eos # (Auto) 100 Baso # (Auto) 100 PT INR APTT D-Dimer ABG pH ABG pCO2 ABG pO2 ABG HCO3 ABG Total CO2 ABG O2 Saturation ABG Base Excess FiO2 Sodium 138 Potassium 3.6 Chloride 103 Carbon Dioxide 30 BUN 24 H Creatinine 0.62 L Estimated GFR > 60.0 BUN/Creatinine Ratio 38.7 H Glucose 33 L* Hemoglobin A1c Lactate Calcium 7.7 L Magnesium Total Bilirubin 0.3 AST 54 ALT 32 Alkaline Phosphatase 142 H Total Creatine Kinase 54 L CK-MB (CK-2) TNP CK-MB (CK-2) Rel Index TNP Troponin I 0.023 NT-Pro-B Natriuret Pep 6700 H Total Protein 6.8 Albumin 2.7 L Globulin 4.1 Albumin/Globulin Ratio 0.7 L Procalcitonin 0.50 TSH Urine Color Urine Appearance Urine pH Ur Specific [place] Urine Protein Urine Glucose (UA) Urine Ketones Urine Occult Blood Urine Nitrate Urine Bilirubin Urine Urobilinogen Ur Leukocyte Esterase Urine RBC Urine WBC Ur Squamous Epith Cells Urine Bacteria Ur Culture Indicated? Salicylates < 1.0 U Opiates 300ng/mL cut Ur Oxycodone Screen Urine Methadone Screen Acetaminophen < 10 Ur Barbiturates Screen U Tricyclic Antidepress Ur Phencyclidine Scrn Ur Amphetamines Screen U Methamphetamines Scrn Ur MDMA Scrn (Ecstasy) U Benzodiazepines Scrn Urine Cocaine Screen U Marijuana (THC) Screen Ethyl Alcohol < 10 SARS-CoV-2 (PCR) Positive H 12/18/21 12/18/21 12/18/21 10:10 10:10 10:10 WBC RBC Hgb Hct MCV MCH MCHC RDW Plt Count Neut % (Auto) Lymph % (Auto) [place] % (Auto) Eos % (Auto) Baso % (Auto) Neut # (Auto) Lymph # (Auto) [place] # (Auto) Eos # (Auto) Baso # (Auto) PT INR APTT D-Dimer ABG pH ABG pCO2 ABG pO2 ABG HCO3 ABG Total CO2 ABG O2 Saturation ABG Base Excess FiO2 Sodium Potassium Chloride Carbon Dioxide BUN Creatinine Estimated GFR BUN/Creatinine Ratio Glucose Hemoglobin A1c 10.7 H Lactate 1.4 Calcium Magnesium Total Bilirubin AST ALT Alkaline Phosphatase Total Creatine Kinase CK-MB (CK-2) CK-MB (CK-2) Rel Index Troponin I NT-Pro-B Natriuret Pep Total Protein Albumin Globulin Albumin/Globulin Ratio Procalcitonin TSH 2.96 Urine Color Urine Appearance Urine pH Ur Specific [place] Urine Protein Urine Glucose (UA) Urine Ketones Urine Occult Blood Urine Nitrate Urine Bilirubin Urine Urobilinogen Ur Leukocyte Esterase Urine RBC Urine WBC Ur Squamous Epith Cells Urine Bacteria Ur Culture Indicated? Salicylates U Opiates 300ng/mL cut Ur Oxycodone Screen Urine Methadone Screen Acetaminophen Ur Barbiturates Screen U Tricyclic Antidepress Ur Phencyclidine Scrn Ur Amphetamines Screen U Methamphetamines Scrn Ur MDMA Scrn (Ecstasy) U Benzodiazepines Scrn Urine Cocaine Screen U Marijuana (THC) Screen Ethyl Alcohol SARS-CoV-2 (PCR) 12/18/21 12/18/21 12/18/21 10:48 10:58 12:45 WBC RBC Hgb Hct MCV MCH MCHC RDW Plt Count Neut % (Auto) Lymph % (Auto) [place] % (Auto) Eos % (Auto) Baso % (Auto) Neut # (Auto) Lymph # (Auto) [place] # (Auto) Eos # (Auto) Baso # (Auto) PT 11.9 INR 1.1 APTT 27 D-Dimer 2263 H ABG pH 7.40 ABG pCO2 45.6 H ABG pO2 72 L ABG HCO3 28 H ABG Total CO2 30 ABG O2 Saturation 94 L ABG Base Excess 3.0 H FiO2 50 Sodium Potassium Chloride Carbon Dioxide BUN Creatinine Estimated GFR BUN/Creatinine Ratio Glucose Hemoglobin A1c Lactate Calcium Magnesium Total Bilirubin AST ALT Alkaline Phosphatase Total Creatine Kinase CK-MB (CK-2) CK-MB (CK-2) Rel Index Troponin I NT-Pro-B Natriuret Pep Total Protein Albumin Globulin Albumin/Globulin Ratio Procalcitonin TSH Urine Color Urine Appearance Urine pH Ur Specific [place] Urine Protein Urine Glucose (UA) Urine Ketones Urine Occult Blood Urine Nitrate Urine Bilirubin Urine Urobilinogen Ur Leukocyte Esterase Urine RBC Urine WBC Ur Squamous Epith Cells Urine Bacteria Ur Culture Indicated? Salicylates U Opiates 300ng/mL cut Ur Oxycodone Screen Urine Methadone Screen Acetaminophen Ur Barbiturates Screen U Tricyclic Antidepress Ur Phencyclidine Scrn Ur Amphetamines Screen U Methamphetamines Scrn Ur MDMA Scrn (Ecstasy) U Benzodiazepines Scrn Urine Cocaine Screen U Marijuana (THC) Screen Ethyl Alcohol SARS-CoV-2 (PCR) 12/18/21 12/18/21 12/18/21 13:00 13:00 15:33 WBC RBC Hgb Hct MCV MCH MCHC RDW Plt Count Neut % (Auto) Lymph % (Auto) [place] % (Auto) Eos % (Auto) Baso % (Auto) Neut # (Auto) Lymph # (Auto) [place] # (Auto) Eos # (Auto) Baso # (Auto) PT INR APTT D-Dimer ABG pH ABG pCO2 ABG pO2 ABG HCO3 ABG Total CO2 ABG O2 Saturation ABG Base Excess FiO2 Sodium Potassium Chloride Carbon Dioxide BUN Creatinine Estimated GFR BUN/Creatinine Ratio Glucose Hemoglobin A1c Lactate Calcium Magnesium 1.6 Total Bilirubin AST ALT Alkaline Phosphatase Total Creatine Kinase CK-MB (CK-2) CK-MB (CK-2) Rel Index Troponin I NT-Pro-B Natriuret Pep Total Protein Albumin Globulin Albumin/Globulin Ratio Procalcitonin TSH Urine Color Yellow Urine Appearance Clear Urine pH 6.5 Ur Specific [place] 1.015 Urine Protein 2+ H Urine Glucose (UA) Negative Urine Ketones Negative Urine Occult Blood Trace-lysed Urine Nitrate Negative Urine Bilirubin Negative Urine Urobilinogen 0.2 Ur Leukocyte Esterase Negative Urine RBC 0-1/hpf Urine WBC 0-1/hpf Ur Squamous Epith Cells 0-1 /hpf Urine Bacteria None seen Ur Culture Indicated? Cult not indicated Salicylates U Opiates 300ng/mL cut Negative Ur Oxycodone Screen Negative Urine Methadone Screen Negative Acetaminophen Ur Barbiturates Screen Negative U Tricyclic Antidepress Negative Ur Phencyclidine Scrn Negative Ur Amphetamines Screen Negative U Methamphetamines Scrn Negative Ur MDMA Scrn (Ecstasy) Negative U Benzodiazepines Scrn Negative Urine Cocaine Screen Negative U Marijuana (THC) Screen Negative Ethyl Alcohol SARS-CoV-2 (PCR) Assessment & Plan Assessment & Plan narrative: 1. Acute on chronic hypoxemic respiratory failure from ---acute on chronic COPD exacerbation ---acute on chronic diastolic heart failure AND ---pneumonia ---large left pleural effusion (question if this is chronic and loculated) -think etiology is less likely covid, hold remdesivir -etiology is likely combination of CHF, COPD, pneumonia -patient s/p thora, ordered for pleural labs that were not sent in ED -follow up cultures -ordered for IV lasix for diuresis -ordered for ECHO -given multiple admissions recently cover for hcap/cap with vanco/zosyn/azithromycin -repeat CT 2. Type 2 Diabetes, on insulin, with hypoglycemia -hypoglycemia secondary to insulin -hold lantus for now -improved with d10, now stop d10 and monitor blood sugar closely -continue on insulin sliding scale 3. Chronic lower extremity wounds -has apparently had chronic infections and has followed up with ortho and wound care -will need outpatient follow up -no acute process on admission 4. COVID positive -initially positive in early November, -strongly doubt this presentation is due to COVID 5. Active smoker -encourage smoking cessation 6. Anemia -MCV low, suspect iron deficiency -now evidence of bleeding -send iron panel Patient current status is guarded. He sounds noncompliant with treatment and unable to be out of the hospital for considerable amount of time. Consideration of palliative treatment would be reasonable. CODE: Full Proxy: Natalie Armando, daughter I have utilized all available resources to reconcile patient's home medications Time Spent With Patient Critical Care time: I spent a total of 45 minutes of critical care time on this patient's care today; this time is exclusive of procedural time. Quality MIPS - Admit I confirm the patient?s Advance Care Plan is present, Code status is documented, Surrogate decision maker is in patient?s record [If Yes, STOP here]: Yes
--- NOTE | 2021-12-18 18:07 | DI.ECHO.S_ITS ---
[facility] +---------+ : : [address] : : : [place], [place] : : : : [id number] : : : : Phone: [phone]+ Echocardiogram Report + + :Name: BARBARA BERMUDEZ Study Date: 12/19/2021 Height: 57 in : [id number] ReadingLocation: Weight: 171 lb : : Gender: Male BSA: 1.7 m2 : :: 1960 Age: 61 yrs BP: 164/83 mmHg: :Reason For Study: CHF : : Performed By: Moira Houston : :Referring: LILIANA JARAMILLO : + + Interpretation Summary The ejection fraction is estimated to be 50-55%. Diastolic function could not be accurately assessed due to unobtainable data. The right ventricle is normal in size and function. The left atrium is mildly dilated. There is mild mitral regurgitation. Unable to estimate PASP. The IVC is dilated (diameter is greater than 2.1 cm) and it collapses less than 50% with a sniff. This suggests a high right atrial pressure of 15 mm Hg. Procedure: A two-dimensional transthoracic echocardiogram with color flow and Doppler was performed. The study quality was technically adequate. There is no prior echocardiogram noted for this patient. Exam is abbreviated and no EKG obtained due to covid precautions. Left Ventricle: The left ventricle is normal in size and wall thickness. The ejection fraction is estimated to be 50-55%. Diastolic function could not be accurately assessed due to unobtainable data. Right Ventricle: The right ventricle is normal in size and function. Atria: The left atrium is mildly dilated. Right atrial size is normal. There is no Doppler evidence for an interatrial shunt. Mitral Valve: The mitral valve leaflets appear mildly thickened, but open well. There is mild mitral regurgitation. Aortic Valve: The aortic valve is mildly calcified. The aortic valve is trileaflet. There is no aortic valve stenosis. No aortic regurgitation is present. Tricuspid Valve: The tricuspid valve is normal in structure and function. There is a trace or physiologic amount of tricuspid regurgitation. Pulmonic Valve: The pulmonic valve is normal in structure and function. There is a trace or physiologic amount of pulmonic regurgitation. Great Vessels: The aortic root is normal size. The ascending aorta could not be visualized. The pulmonary artery is normal size. The IVC is dilated (diameter is greater than 2.1 cm) and it collapses less than 50% with a sniff. This suggests a high right atrial pressure of 15 mm Hg. Pericardium/ Pleura There is no pericardial effusion. There is no pleural effusion. MMode/2D Measurements & Calculations LVIDd: 4.6 cm LVOT diam: 2.3 cm LVIDs: 3.9 cm Ao root diam: 3.4 cm FS: 15.1 % EPSS: 0.45 cm IVSd: 1.0 cm LVPWd: 0.93 cm LV martinez. diameter/BSA (cm/m^2): 2.7 LV sys. diameter/BSA (cm/m^2): 2.3 LA A2 area: 20.4 cm2 RA long axis: 4.2 cm LA A4 area: 13.2 cm2 RA area: 11.0 cm2 LA length (vol): 3.8 cm RA vol: 24.4 ml LA vol: 60.5 ml RA : 14.5 ml/m2 LA vol index: 36.0 ml/m2 IVC diam: 2.4 cm RVD1 (basal): 3.2 cm Doppler Measurements & Calculations Ao V2 max: 104.1 cm/sec LVOT Max Malachi: 101.9 cm/sec Ao V2 mean: 69.5 cm/sec LV V1 max P.2 mmHg Ao max P.3 mmHg LV V1 VTI: 15.9 cm Ao mean P.2 mmHg KARTHIK(I,D): 3.9 cm2 Ao V2 VTI: 16.7 cm KARTHIK(V,D): 4.0 cm2 sev ratio: 0.96 KARTHIK indexed to BSA (cm^2/m^2): 2.3 MV A max malachi: 154.1 cm/sec SV(LVOT): 65.0 ml Med Peak E' Malachi: 9.8 cm/sec Lat Peak E' Malachi: 9.8 cm/sec Reading Physician:05:35 PM
--- NOTE | 2021-12-18 19:17 | PC.ADMIT ---
4[facility] Admission Note: Pt admitted to ICU, arrived on unit with RT at bedside via gurney. Placed on HHF 50L/50% SpO2 98%, RT turned FIO2 down to 45%. Connected to monitoring equipment, tele manager wealth management consulted with Dr Millan, pt oriented to room and call light system, bed low and locked call light within reach, will continue to treat and monitor. The patient,Han Armando,61 y/o, was given written information regarding hospital policies, unit procedures and contact persons. Patient's smoking status: Former smoker. Vital Signs - 8 hr 12/18/21 11:18 12/18/21 11:30 12/18/21 12:00 Temperature Pulse Rate 81 77 Respiratory Rate 24 19 Blood Pressure Pulse Oximetry 90 L 91 86 L 12/18/21 12:06 12/18/21 12:20 12/18/21 12:30 Temperature Pulse Rate 78 79 80 Respiratory Rate 17 16 32 H Blood Pressure 195/103 H 200/95 H Pulse Oximetry 93 94 97 12/18/21 12:40 12/18/21 12:45 12/18/21 13:00 Temperature Pulse Rate 80 82 81 Respiratory Rate 28 H 24 26 H Blood Pressure 168/88 H 167/89 H 168/87 H Pulse Oximetry 95 98 95 12/18/21 13:20 12/18/21 13:30 12/18/21 13:41 Temperature Pulse Rate 84 85 Respiratory Rate 24 Blood Pressure 172/96 H 178/99 H Pulse Oximetry 92 95 12/18/21 13:46 12/18/21 13:51 12/18/21 14:00 Temperature 97.2 F L Pulse Rate 84 82 82 Respiratory Rate 30 H Blood Pressure 167/89 H 177/90 H Pulse Oximetry 99 94 12/18/21 14:30 12/18/21 15:00 12/18/21 15:30 Temperature 97.2 F L 97.3 F L 97.7 F Pulse Rate 86 88 88 Respiratory Rate 21 27 H 25 H Blood Pressure Pulse Oximetry 95 93 94 12/18/21 16:00 12/18/21 16:01 12/18/21 16:24 Temperature 97.8 F Pulse Rate 91 H 92 H 90 Respiratory Rate 31 H 42 H 26 H Blood Pressure 177/90 H 177/90 H Pulse Oximetry 98 85 L 95 12/18/21 16:30 12/18/21 17:00 12/18/21 17:28 Temperature Pulse Rate 91 H 92 H 93 H Respiratory Rate 24 24 25 H Blood Pressure 162/79 H Pulse Oximetry 95 96 94 12/18/21 17:30 12/18/21 18:00 12/18/21 18:30 Temperature Pulse Rate 94 H 99 H 96 H Respiratory Rate 34 H 36 H 22 Blood Pressure Pulse Oximetry 92 91 80 L 12/18/21 18:37 Temperature Pulse Rate 95 H Respiratory Rate 27 H Blood Pressure 161/80 H Pulse Oximetry 99
[2021-12-18] MEDS: FUROSEMIDE 40 MG/4 ML VIAL IV ×2 (19:23→23:41)
[2021-12-18] MEDS: PIPERACILLIN/TAZO 3.375 GM in SODIUM CHLORIDE 0.9% 100 ML 25 ML IV (19:53)
[2021-12-18] MEDS: ACETAMINOPHEN 325 MG TABLET 650 MG PO (20:06)
--- NOTE | 2021-12-18 20:38 | PM.ICURNDS ---
- :: This patient was seen via real time interactive two-way audiovisual telecommunication. Note: Completed multidisciplinary rounds. Patient admitted for acute hypoxemia respiratory failure secondary to pulmonary edema with possible superimposed PNA. On vanc/zosyn. Underwent left thoracentesis and had 1.6 liters removed. On HFNC 50/45% with SpO2 ~94%. Will continue diuresis to seek net negative fluid balance and obtain repeat CT chest to rule out left lung mass. Per discussion with hospitalist, patient was diagnosed with COVID-19 in early November 2021 so will stop remdesivir therapy.
--- NOTE | 2021-12-18 20:40 | DI.CT.S_ITS ---
PROCEDURE: CT CHEST WO CON INDICATIONS: Post thoracentesis; please asses for left lung mass TECHNIQUE: Noncontrast 5 mm thick sections acquired from the pulmonary apices to the posterior costophrenic angles. 1 mm lung window, 5 mm thick coronal and sagittal and 7 mm axial MIP reformats were then acquired. For radiation dose reduction, the following was used: automated exposure control, adjustment of mA and/or kV according to patient size. COMPARISON: [facility], CT, CT ANGIO CHEST PE PROTOCOL, 12/18/2021, 11:39. [facility], CR, XR CHEST 1V, 12/19/2021, 12:21. [facility], CR, XR CHEST 1V, 12/18/2021, 15:03. [facility], US, US THORACENTESIS, 12/18/2021, 13:38. FINDINGS: Image quality: Excellent. Lungs and pleura: Bilateral patchy interstitial type and ground-glass type opacities are seen, which are similar to the 12/18/2021 examination. There is a small left-sided pleural effusion seen, which is improved compared to the prior examination. There is a trace right-sided pleural effusion. No tamar pulmonary masses are detected. There is no pneumothorax. The central airways are patent. Mediastinum: Heart size is normal. No pericardial effusion. No mediastinal adenopathy by size criteria. Thoracic aorta and central pulmonary arteries are normal in size. Atherosclerotic calcification is noted. Esophagus is normal in caliber. No hiatal hernia. Bones and chest wall: No suspicious bony lesions. Age-appropriate bony degenerative changes are seen. Accentuated thoracic kyphosis is seen. No vertebral body compression fractures. No axillary or supraclavicular adenopathy by size criteria. Thyroid gland demonstrates no significant noncontrast abnormality. Abdomen: Visualized upper abdominal solid organs and bowel loops appear normal in the absence of contrast. IMPRESSION: No lung masses are seen on this study. Once this patient's pulmonary opacities and pleural effusions have resolved, please consider a follow-up noncontrast chest CT to assess for an underlying pulmonary mass. Patchy bilateral interstitial infiltrates are seen, which are consistent with the known clinical history of COVID pneumonia. Small left-sided pleural effusion, which is improved compared to the prior examination. There is a trace right-sided pleural effusion. Dictated by: Stefano Abdullahi M.D. on 12/20/2021 at 8:22 Approved by: Stefano Abdullahi M.D. on 12/20/2021 at 8:26
[2021-12-18] MEDS: INSULIN LISPRO 100 UNIT/ML 3ML VIAL SUBCUT (20:47)
[2021-12-18] MEDS: VANCOMYCIN 1,750 MG in SODIUM CHLORIDE 0.9% 500 ML 250 MG IV (20:50)
[2021-12-18] MEDS: INSULIN LISPRO 100 UNIT/ML 3ML VIAL 10 UNIT SUBCUT (22:53)
[2021-12-19] VITALS (14 sets, daily range): BP systolic 128–164; BP diastolic 66–83; PULSE 80–100; RESP 16–26; TEMP 36.3–37.1; O2SAT 93–99
[2021-12-19] MEDS: INSULIN LISPRO 100 UNIT/ML 3ML VIAL 10 UNIT SUBCUT (00:27)
[2021-12-19] MEDS: PIPERACILLIN/TAZO 3.375 GM in SODIUM CHLORIDE 0.9% 100 ML 25 ML IV ×3 (03:45→20:44)
[2021-12-19] MEDS: ACETAMINOPHEN 325 MG TABLET 650 MG PO (04:00)
[2021-12-19 04:53] LABS: Add Manual Diff / Slide Review NO; Basophils Absolute Auto 0 /uL (0-100); Basophils Percent Auto 0.2 % (0-2); Eosinophils Absolute Auto 0 /uL (0-450); Eosinophils Percent Auto 0.3 % (2-4); Hematocrit 27.6 % (41-53); Hemoglobin 8.6 g/dL (13.5-17.5); Lymphocytes Absolute Auto 1800 /uL (1100-4500); Lymphocytes Percent Auto 11.2 % (25-40); Mean Corpuscular HGB Conc 31.3 % (30-36); Mean Corpuscular Hemoglobin 23.8 PG (26-34); Mean Corpuscular Volume 76.2 fL (80-100); Monocytes Absolute Auto 900 /uL (0-900); Monocytes Percent Auto 5.7 % (3-14); Neutrophils Absolute Auto 12900 /uL (1500-7000); Neutrophils Percent Auto 82.6 % (50-75); Platelet Count 417 X10^3/uL (150-400); Red Blood Cell Count 3.62 X10^6/uL (4.5-5.9); Red Cell Distribution Width 19.1 % (11.6-14.8); White Blood Cell Count 15.6 X10^3/uL (4.5-11.0)
[2021-12-19 05:17] LABS: BUN Creatinine Ratio 34.6 (6-22); Blood Urea Nitrogen 28 mg/dL (9-20); Calcium 7.4 mg/dL (8.4-10.2); Carbon Dioxide 31 mmol/L (22-32); Chloride 100 mmol/L (98-107); Estimated Glomerular Filt Rate > 60.0 mL/min (>60); Glucose 112 mg/dL (80-110); HEMOLYSIS < 15 (0-50); Magnesium 1.8 mg/dL (1.6-2.3); Potassium 3.8 mmol/L (3.4-5.1); Sodium 133 mmol/L (137-145); Vancomycin Trough 12.2 ug/mL (10-20)
--- NOTE | 2021-12-19 06:19 | PC.NURSE ---
Addendum entered by Nabor Mac R.N. 12/19/21 07:24: @0600 BG checked - 69, snacks provided, BG rechecked @0630, BG-132. Will continue to monitor. Original Note: Shift Note: Patient was alert and orientedx3, with O2 support by HFNC @ 50L/45%, maintaining O2 sat at >92%, slightly dyspneic on exertion, afebrile, vital signs are within acceptable limits. Patient complained pain on bilateral legs and feet, tylenol PO given. Lungs bilaterally coarse throughout; active bowel tones. Wilcox cath in placed with adequate urine output. Blood glucose monitored q2h, @2200H BG-438, notified Dr Mcclelland and ordered 10 units stat dose of humalog, repeated after 2hours, @ 0000H, BG checked - 301, notified Dr. Mcclelland and ordered another 10 units of humalog. @0200H - BG 250, called Dr Mcclelland, didn't machine operator hop picker the call, voicemail message left. @0400 BG checked - 129mg/dl. Will continue to monitor.
[2021-12-19 06:33] LABS: Hemoglobin A1C% w Est Avg Glu 10.9 % (4.0-6.0)
[2021-12-19 06:57] LABS: HEMOLYSIS < 15 (0-50); Iron 17 ug/dL (49-181)
[2021-12-19 07:07] LABS: Percent Iron Saturation 8 % (20-50); Total Iron Binding Capacity 214 ug/dL (261-462); Transferrin 152 mg/dL (206-381)
[2021-12-19] MEDS: VANCOMYCIN TROUGH 1 REQUEST MISC (07:30)
[2021-12-19] MEDS: ALBUTEROL/IPRATROPIUM 3 ML AMPUL INH ×4 (08:08→21:47)
[2021-12-19] MEDS: VANCOMYCIN 1,750 MG in SODIUM CHLORIDE 0.9% 500 ML 250 MG IV ×2 (09:00→19:31)
[2021-12-19] MEDS: FERROUS SULFATE 325 MG TABLET PO (09:02)
[2021-12-19] MEDS: ENOXAPARIN 40 MG/0.4 ML SYRINGE SUBCUT (09:02)
[2021-12-19] MEDS: predniSONE 20 MG TABLET 40 MG PO (09:02)
--- NOTE | 2021-12-19 11:43 | PM.PN.EICU ---
Subjective Subjective :: This patient was seen via real time interactive two-way audiovisual telecommunication. Patient remaisn on high flow today but only on 35% and 50L, is comfortable and tolerating PO Current Medications Current Medications Medications: Visit Medications (administered) Generic Name Dose Route Start Last Admin Trade Name Freq PRN Reason Stop Dose Admin Acetaminophen 650 mg 12/18/21 15:36 12/19/21 04:00 Acetaminophen 325 Mg Tablet PO 650 mg Q6HR PRN Administration pain Albuterol/Ipratropium 3 ml 12/18/21 19:00 12/19/21 10:58 Albuterol/Ipratropium 3 Ml Ampul INH 3 ml [id number] VIET Administration Enoxaparin Sodium 40 mg 12/19/21 09:00 12/19/21 09:02 Enoxaparin 40 Mg/0.4 Ml Syringe SUBCUT 40 mg DAILY VIET Administration Ferrous Sulfate 325 mg 12/19/21 09:00 12/19/21 09:02 Ferrous Sulfate 325 Mg Tablet PO 325 mg DAILY VIET Administration Furosemide 40 mg 12/18/21 19:00 12/18/21 23:41 Furosemide 40 Mg/4 Ml Vial IV 40 mg Q12HR VIET Administration Piperacillin Sod/Tazobactam 100 mls @ 25 mls/hr 12/18/21 20:00 12/19/21 03:45 Sod 3.375 gm/ Sodium Chloride IV 25 mls/hr Q8H VIET Administration Azithromycin 500 mg/ Dextrose 250 mls @ 250 mls/hr 12/18/21 15:36 12/18/21 20:00 IV Infused Q24H VIET Infusion Vancomycin HCl 1,750 mg/ 500 mls @ 250 mls/hr 12/18/21 20:00 12/19/21 09:00 Sodium Chloride IV 250 mls/hr Q12H VIET Administration Insulin Human Lispro 0 unit 12/18/21 21:00 12/19/21 08:35 Insulin Lispro 100 Unit/Ml 3ml Vial SUBCUT Not Given ACHS [facility] Protocol Prednisone 40 mg 12/19/21 09:00 12/19/21 09:02 Prednisone 20 Mg Tablet PO 40 mg DAILY VIET Administration Objective Ventilator Parameters: Ventilator Settings FiO2 50 Labs Result Diagrams: 12/19/21 04:32 12/19/21 04:32 Labs: Laboratory Results - last 24 hr 12/18/21 12/18/21 12/18/21 10:58 12:45 13:00 WBC RBC Hgb Hct MCV MCH MCHC RDW Plt Count Neut % (Auto) Lymph % (Auto) [place] % (Auto) Eos % (Auto) Baso % (Auto) Neut # (Auto) Lymph # (Auto) [place] # (Auto) Eos # (Auto) Baso # (Auto) PT 11.9 INR 1.1 APTT 27 ABG pH 7.40 ABG pCO2 45.6 H ABG pO2 72 L ABG HCO3 28 H ABG Total CO2 30 ABG O2 Saturation 94 L ABG Base Excess 3.0 H FiO2 50 Sodium Potassium Chloride Carbon Dioxide BUN Creatinine Estimated GFR BUN/Creatinine Ratio Glucose Hemoglobin A1c Calcium Magnesium Iron TIBC % Saturation Transferrin Urine Color Yellow Urine Appearance Clear Urine pH 6.5 Ur Specific Magnet 1.015 Urine Protein 2+ H Urine Glucose (UA) Negative Urine Ketones Negative Urine Occult Blood Trace-lysed Urine Nitrate Negative Urine Bilirubin Negative Urine Urobilinogen 0.2 Ur Leukocyte Esterase Negative Urine RBC 0-1/hpf Urine WBC 0-1/hpf Ur Squamous Epith Cells 0-1 /hpf Urine Bacteria None seen Ur Culture Indicated? Cult not indicated Vancomycin Peak Vancomycin Trough U Opiates 300ng/mL cut Ur Oxycodone Screen Urine Methadone Screen Ur Barbiturates Screen U Tricyclic Antidepress Ur Phencyclidine Scrn Ur Amphetamines Screen U Methamphetamines Scrn Ur MDMA Scrn (Ecstasy) U Benzodiazepines Scrn Urine Cocaine Screen U Marijuana (THC) Screen 12/18/21 12/18/21 12/19/21 13:00 15:33 04:32 WBC RBC Hgb Hct MCV MCH MCHC RDW Plt Count Neut % (Auto) Lymph % (Auto) [place] % (Auto) Eos % (Auto) Baso % (Auto) Neut # (Auto) Lymph # (Auto) [place] # (Auto) Eos # (Auto) Baso # (Auto) PT INR APTT ABG pH ABG pCO2 ABG pO2 ABG HCO3 ABG Total CO2 ABG O2 Saturation ABG Base Excess FiO2 Sodium Potassium Chloride Carbon Dioxide BUN Creatinine Estimated GFR BUN/Creatinine Ratio Glucose Hemoglobin A1c Calcium Magnesium 1.6 Iron TIBC % Saturation Transferrin Urine Color Urine Appearance Urine pH Ur Specific Magnet Urine Protein Urine Glucose (UA) Urine Ketones Urine Occult Blood Urine Nitrate Urine Bilirubin Urine Urobilinogen Ur Leukocyte Esterase Urine RBC Urine WBC Ur Squamous Epith Cells Urine Bacteria Ur Culture Indicated? Vancomycin Peak Vancomycin Trough 12.2 U Opiates 300ng/mL cut Negative Ur Oxycodone Screen Negative Urine Methadone Screen Negative Ur Barbiturates Screen Negative U Tricyclic Antidepress Negative Ur Phencyclidine Scrn Negative Ur Amphetamines Screen Negative U Methamphetamines Scrn Negative Ur MDMA Scrn (Ecstasy) Negative U Benzodiazepines Scrn Negative Urine Cocaine Screen Negative U Marijuana (THC) Screen Negative 12/19/21 12/19/21 12/19/21 04:32 04:32 04:32 WBC 15.6 H RBC 3.62 L Hgb 8.6 L Hct 27.6 L MCV 76.2 L MCH 23.8 L MCHC 31.3 RDW 19.1 H Plt Count 417 H Neut % (Auto) 82.6 H Lymph % (Auto) 11.2 L [place] % (Auto) 5.7 Eos % (Auto) 0.3 L Baso % (Auto) 0.2 Neut # (Auto) 28197 H Lymph # (Auto) 1800 [place] # (Auto) 900 Eos # (Auto) 0 Baso # (Auto) 0 PT INR APTT ABG pH ABG pCO2 ABG pO2 ABG HCO3 ABG Total CO2 ABG O2 Saturation ABG Base Excess FiO2 Sodium 133 L Potassium 3.8 Chloride 100 Carbon Dioxide 31 BUN 28 H Creatinine 0.81 Estimated GFR > 60.0 BUN/Creatinine Ratio 34.6 H Glucose 112 H Hemoglobin A1c Calcium 7.4 L Magnesium 1.8 Iron 17 L TIBC 214 L % Saturation 8 L Transferrin 152 L Urine Color Urine Appearance Urine pH Ur Specific Magnet Urine Protein Urine Glucose (UA) Urine Ketones Urine Occult Blood Urine Nitrate Urine Bilirubin Urine Urobilinogen Ur Leukocyte Esterase Urine RBC Urine WBC Ur Squamous Epith Cells Urine Bacteria Ur Culture Indicated? Vancomycin Peak Vancomycin Trough U Opiates 300ng/mL cut Ur Oxycodone Screen Urine Methadone Screen Ur Barbiturates Screen U Tricyclic Antidepress Ur Phencyclidine Scrn Ur Amphetamines Screen U Methamphetamines Scrn Ur MDMA Scrn (Ecstasy) U Benzodiazepines Scrn Urine Cocaine Screen U Marijuana (THC) Screen 12/19/21 12/19/21 12/19/21 04:32 07:00 07:00 WBC RBC Hgb Hct MCV MCH MCHC RDW Plt Count Neut % (Auto) Lymph % (Auto) [place] % (Auto) Eos % (Auto) Baso % (Auto) Neut # (Auto) Lymph # (Auto) [place] # (Auto) Eos # (Auto) Baso # (Auto) PT INR APTT ABG pH ABG pCO2 ABG pO2 ABG HCO3 ABG Total CO2 ABG O2 Saturation ABG Base Excess FiO2 Sodium Potassium Chloride Carbon Dioxide BUN Creatinine Estimated GFR BUN/Creatinine Ratio Glucose Hemoglobin A1c 10.9 H Calcium Magnesium Iron TIBC % Saturation Transferrin Urine Color Urine Appearance Urine pH Ur Specific Magnet Urine Protein Urine Glucose (UA) Urine Ketones Urine Occult Blood Urine Nitrate Urine Bilirubin Urine Urobilinogen Ur Leukocyte Esterase Urine RBC Urine WBC Ur Squamous Epith Cells Urine Bacteria Ur Culture Indicated? Vancomycin Peak Cancelled Vancomycin Trough 10.0 U Opiates 300ng/mL cut Ur Oxycodone Screen Urine Methadone Screen Ur Barbiturates Screen U Tricyclic Antidepress Ur Phencyclidine Scrn Ur Amphetamines Screen U Methamphetamines Scrn Ur MDMA Scrn (Ecstasy) U Benzodiazepines Scrn Urine Cocaine Screen U Marijuana (THC) Screen Exam Vital Signs (past 8 hours): - 12/19/21 04:00 12/19/21 05:34 12/19/21 08:00 Temperature 97.4 F L 97.4 F L Pulse Rate 80 89 81 Respiratory Rate 18 20 24 Blood Pressure 130/68 143/69 H 136/72 Pulse Oximetry 95 93 95 12/19/21 08:10 Temperature Pulse Rate 82 Respiratory Rate 18 Blood Pressure Pulse Oximetry 99 Fraction of Inspired Oxygen 45 Oxygen Delivery Method Heated High Flow Oxygen Flow Rate 50 Narrative Exam Narrative: surrogate for exam is primary team Assessment & Plan Assessment & Plan narrative: Assessment COVID PNA Acute on chronic hypoxic respiratory failure Large L pleural effusion possible superimposed bacrerial PNA possible superimposed CHF exacerbation hypoglycemia h/o of DM h/o of CHF Plan MEntal status improved this AM decadron for COVID wean off high flow NC etiolgoy of effusion unclear as fluid analysis dosent seem to be available to me repeat XR chest obtain ECHO to evaluate EF if patient remains hypertensive, consider Nitro paste or nitro drip Remdesivir and baricitinib for COVID (if he didn't get a course at outside hospital) empiric abx (VAnco, Zosyn, and Doxy) for HCAP and CAP f/u abreu culture trend cbc and bmp monitor UO and diurese as needed wean off d10 FS q4 hours encourage po intake PPx: lovenox CCT 35 min Time Spent With Patient Critical Care time: I spent a total of [] minutes of critical care time on this patient's care today; this time is exclusive of procedural time.
--- NOTE | 2021-12-19 11:55 | DI.RAD.S_ITS ---
PROCEDURE: XR CHEST 1V INDICATIONS: Hypoxemic respiratory failure status post thoracentesis TECHNIQUE: One view of the chest was acquired. COMPARISON: [facility], CT, CT ANGIO CHEST PE PROTOCOL, 12/18/2021, 11:39. [facility], CR, XR CHEST 1V, 12/18/2021, 15:03. FINDINGS: Surgical changes and devices: None. Lungs and pleura: Patchy bilateral airspace opacities similar to the prior study. Small right pleural effusion and tiny left pleural effusion with left pleural thickening is also similar. No pleural effusions or pneumothorax. Mediastinum: Mediastinal contours appear normal. Heart size is normal. Bones and chest wall: No suspicious bony lesions. Overlying soft tissues appear unremarkable. IMPRESSION: Stable exam with diffuse patchy airspace opacities, small right pleural effusion, trace left pleural effusion, and left pleural thickening all appearing simila 2 12/18/2021 examinations. Dictated by: Paulie Priest M.D. on 12/19/2021 at 12:35 Approved by: Paulie Priest M.D. on 12/19/2021 at 12:38
[2021-12-19 11:58] LABS: COVID19 -Nasal RAPID Negative (Negative)
[2021-12-19] MEDS: FUROSEMIDE 40 MG/4 ML VIAL IV (12:26)
--- NOTE | 2021-12-19 12:45 | PC.NURSE ---
Dayshift note After negative covid test and knowledge that pt last had COVID in November, Dr Blank authorized pt to be taken off isolation. Per Dr Cisse do not give insulin coverage unless CBG is over 250, due to the fact the pts BG dropping quickly after insulin administration. Bed low and locked, call light within reach will continue to monitor.
--- NOTE | 2021-12-19 13:16 | P.PN_ITS ---
Subjective Subjective Date Patient Seen: 12/19/21 Time Patient Seen: 13:16 Interval history: Breathing is much improved today, now to nasal cannula and only a few L of O2 currently. Blood sugars highly variable. No other complaints today. No chest pain, nausea, or vomiting. Exam Vital Signs (past 8 hours): - 12/19/21 05:34 12/19/21 08:00 12/19/21 08:10 Temperature 97.4 F L Pulse Rate 89 81 82 Respiratory Rate 20 24 18 Blood Pressure 143/69 H 136/72 Pulse Oximetry 93 95 99 12/19/21 10:58 12/19/21 10:59 12/19/21 11:15 Temperature Pulse Rate 86 Respiratory Rate 20 Blood Pressure 136/72 Pulse Oximetry 97 97 93 Fraction of Inspired Oxygen 35 Oxygen Delivery Method Nasal Cannula Oxygen Flow Rate 2 Narrative Exam Narrative: GEN: no acute distress, chronically ill appearing, appears older than stated age HEENT: moist mucous membranes, PERRL NECK: trachea midline, no JVD CV: regular rate and rhythm, no murmurs PULM: coarse breath sounds bilaterally, absent breath sounds left base ABD: soft, nontender, nondistended, no organomegaly EXT: warm and well perfused, with severe chronic wounds of lower extremities that appear severe but no active infection NEURO: awake and alert, oriented. No focal deficits. Objective Labs Result Diagrams: 12/19/21 04:32 12/19/21 04:32 Labs: Laboratory Results - last 24 hr 12/18/21 12/18/21 12/19/21 13:00 15:33 04:32 WBC RBC Hgb Hct MCV MCH MCHC RDW Plt Count Neut % (Auto) Lymph % (Auto) [place] % (Auto) Eos % (Auto) Baso % (Auto) Neut # (Auto) Lymph # (Auto) [place] # (Auto) Eos # (Auto) Baso # (Auto) Sodium Potassium Chloride Carbon Dioxide BUN Creatinine Estimated GFR BUN/Creatinine Ratio Glucose Hemoglobin A1c Calcium Magnesium 1.6 Iron TIBC % Saturation Transferrin Urine RBC 0-1/hpf Urine WBC 0-1/hpf Ur Squamous Epith Cells 0-1 /hpf Urine Bacteria None seen Ur Culture Indicated? Cult not indicated Vancomycin Peak Vancomycin Trough 12.2 SARS-CoV-2 (PCR) 12/19/21 12/19/21 12/19/21 04:32 04:32 04:32 WBC 15.6 H RBC 3.62 L Hgb 8.6 L Hct 27.6 L MCV 76.2 L MCH 23.8 L MCHC 31.3 RDW 19.1 H Plt Count 417 H Neut % (Auto) 82.6 H Lymph % (Auto) 11.2 L [place] % (Auto) 5.7 Eos % (Auto) 0.3 L Baso % (Auto) 0.2 Neut # (Auto) 14035 H Lymph # (Auto) 1800 [place] # (Auto) 900 Eos # (Auto) 0 Baso # (Auto) 0 Sodium 133 L Potassium 3.8 Chloride 100 Carbon Dioxide 31 BUN 28 H Creatinine 0.81 Estimated GFR > 60.0 BUN/Creatinine Ratio 34.6 H Glucose 112 H Hemoglobin A1c Calcium 7.4 L Magnesium 1.8 Iron 17 L TIBC 214 L % Saturation 8 L Transferrin 152 L Urine RBC Urine WBC Ur Squamous Epith Cells Urine Bacteria Ur Culture Indicated? Vancomycin Peak Vancomycin Trough SARS-CoV-2 (PCR) 12/19/21 12/19/21 12/19/21 04:32 07:00 07:00 WBC RBC Hgb Hct MCV MCH MCHC RDW Plt Count Neut % (Auto) Lymph % (Auto) [place] % (Auto) Eos % (Auto) Baso % (Auto) Neut # (Auto) Lymph # (Auto) [place] # (Auto) Eos # (Auto) Baso # (Auto) Sodium Potassium Chloride Carbon Dioxide BUN Creatinine Estimated GFR BUN/Creatinine Ratio Glucose Hemoglobin A1c 10.9 H Calcium Magnesium Iron TIBC % Saturation Transferrin Urine RBC Urine WBC Ur Squamous Epith Cells Urine Bacteria Ur Culture Indicated? Vancomycin Peak Cancelled Vancomycin Trough 10.0 SARS-CoV-2 (PCR) 12/19/21 10:59 WBC RBC Hgb Hct MCV MCH MCHC RDW Plt Count Neut % (Auto) Lymph % (Auto) [place] % (Auto) Eos % (Auto) Baso % (Auto) Neut # (Auto) Lymph # (Auto) [place] # (Auto) Eos # (Auto) Baso # (Auto) Sodium Potassium Chloride Carbon Dioxide BUN Creatinine Estimated GFR BUN/Creatinine Ratio Glucose Hemoglobin A1c Calcium Magnesium Iron TIBC % Saturation Transferrin Urine RBC Urine WBC Ur Squamous Epith Cells Urine Bacteria Ur Culture Indicated? Vancomycin Peak Vancomycin Trough SARS[facility]CoV-2 (PCR) [facility] Social History Smoking Status: Former smoker alcohol intake: never Assessment & Plan Assessment & Plan narrative: 1. Acute on chronic hypoxemic respiratory failure from the etiologies noted below: ---acute on chronic COPD exacerbation ---acute on chronic diastolic heart failure AND ---pneumonia ---large left pleural effusion (question if this is chronic and loculated) -think etiology is less likely covid, hold remdesivir but continue decadron for COPD given questionable. Repeat COVID negative today and taken off of precautions after discussion with infection control. -etiology is likely combination of CHF, COPD, pneumonia -patient s/p thora, ordered for pleural labs that were not collected. No fluid sent. -follow up cultures -continue IV lasix for diuresis -ordered for ECHO -given multiple admissions recently cover for hcap/cap with vanco/zosyn/azithromycin, can likely narrow tomorrow. -repeat CT recommended for evaluation of possible lung mass when able. -baseline he is on 1-2 L of O2 at home. 2. Type 2 Diabetes, on insulin, with hypoglycemia -hypoglycemia secondary to insulin -continue to hold lantus for now -improved with d10, now stop d10 and monitor blood sugar closely -continue on insulin sliding scale, only give if CBG is >250. 3. Chronic lower extremity wounds -has apparently had chronic infections and has followed up with ortho and wound care -will need outpatient follow up -no acute process on admission 4. COVID positive -initially positive in early November, -strongly doubt this presentation is due to COVID -repeat COVID 12/19 was negative. 5. Active smoker -encourage smoking cessation 6. Anemia -MCV low, iron deficiency on labs. -now evidence of bleeding -started on oral iron today. Patient current status is guarded. He sounds noncompliant with treatment and unable to be out of the hospital for considerable amount of time. Will obtain PT/OT evaluations tomorrow Can be listed for regular floor today now that on minimal supplemental o2. CODE: Full Proxy: Nataliemana Armando, daughter Time Spent With Patient Critical Care time: I spent a total of [] minutes of critical care time on this patient's care today; this time is exclusive of procedural time.
--- NOTE | 2021-12-19 15:05 | PT.IIE ---
Current Diagnoses Acute and chronic respiratory failure with hypoxia (12/18/21) Hypoxemia (12/18/21) Physical Therapy Inpatient Evaluation/Re-Eval M1 PT/OT-IP Prior Functional Status Start: 12/19/21 16:59 Freq: NEEDED Status: Active Protocol: Document 12/19/21 15:05 AB (Rec: 12/19/21 17:25 AB [email or web address]) Medical Review Prior Functional Status Medical History Reviewed Yes Communication able to make needs known Mobility and Gait pt stated that he has been in the hospital before (pt with dx Covid in november) and has only been back for for a few weeks but still has not recovered much and has difficulty functioning at home . stated that prior to that, he was independent with all mobilities and ambulation using a SPC; stated that he is able to ambulate inside the house but not so much outside; has been using home O2 05/04 Social History Household Members family Living Arrangements House Number of Floors (Floors) One Floor Number of Stairs To Enter/Railing? pt stated that he is renting a manufactured home 4 steps L rail to enter Home Environment Standard Height Toilet,Walk in Shower,Tub/Shower,Built-In Shower Seat Home Equipment Front Wheel Walker,Straight Cane,Hand Held Shower Additional Social History Comment pt lives with her daughter who assist him with house chores; stated that he also has a neighbors that comes in to assists with meals M2 PT-IP Current Condition Start: 12/19/21 16:59 Freq: NEEDED Status: Active Protocol: Document 12/19/21 15:05 AB (Rec: 12/19/21 17:25 AB [email or web address]) Physical Therapy Current Condition Current Condition Evaluation Date 12/19/21 Treatment Diagnosis respiratory failure; difficulty in walking Onset Date 12/18/21 M3 PT-IP Subjective Start: 12/19/21 16:59 Freq: NEEDED Status: Active Protocol: Document 12/19/21 15:05 AB (Rec: 12/19/21 17:25 AB [email or web address]) Subjective Physical Therapy Visit Type Type Initial Evaluation Visit Start Time 15:05 Visit Stop Time 15:35 Total Visit Minutes 30 Notes pt initially has Covid (+) test result 12/18 but retested and has negative result. Per nurse, pt was testing positive due to previous Covid infection and that per infectious control doctor, pt can be off Covid precautions. Number of RUFFLER Visits 0 Physical Therapy Visit Comments Patient Comments agreeable to do PT Therapy Pain Assessment Pain Present Pain Present Denied Pain M4 PT-IP Mobility and Gait Start: 12/19/21 16:59 Freq: NEEDED Status: Active Protocol: Document 12/19/21 15:05 AB (Rec: 12/19/21 17:25 [email or web address]) PT-Bed Mobility Assessment Supine to Sit Supine to Sit Standby Assistance PT-Transfer Assessment Sit to and From Stand Sit to and from Stand Minimal Assistance,1 Person Assistance,Use of Upper Extremities Equipment Transfer Assistive Device Gait Belt,Front Wheeled Walker Orthotic/Prosthetic Devices or Brace: No Transfers Transfer Destination Chair Transfer Technique ambulated Transfer Ability Level of Assist Minimal Assistance,1 Person Assistance,Use of Upper Extremities Comments Mobility Comments pt completed supine to sit SBA with HOB elevated. able to sit on EOB SBA. O2 sat: 96% with O2 on. pt requested to put underwear on. completed sit to stand min A and requires assist for brief management. ambulated ~ 5 ft using FWW min A and sat on chair. agreed to stay up on chair. positioned on chair. O2 sat: 97%. call light and table placed within reach. Gait Assessment Gait Gait Assistance Required: Minimum Assistance Distance (Feet) 5 Able to Maintain Weight Bearing Status Yes During Gait Assistive Devices Assistive Device Gait Belt,Front Wheeled Walker Orthotic/Prosthetic Devices or Brace: No Gait Deviations General Gait Pattern Decreased Stride Length, Decreased Feet Clearance,Step- to Gait Factors Limiting Gait Function Factors Limiting Gait Function Decreased Activity Tolerance, Decreased Strength,Difficulty Following Directions,Poor Balance,Poor Safety Awareness, Respiratory Distress PT-Balance Assessment Sitting Balance and Reactions Static Sitting Balance Ability Good Dynamic Sitting Balance Ability Good Standing Balance and Reactions Static Standing Balance Ability Fair Dynamic Standing Balance Ability Fair Device Used FWW M5 PT-IP Objective Assessments Start: 12/19/21 16:59 Freq: NEEDED Status: Active Protocol: Document 12/19/21 15:05 AB (Rec: 12/19/21 17:25 [email or web address]) Orientation Orientation/Cognition Level of Alertness Alert Orientation Name Language Function Ability No Deficits Noted Safety Awareness Decreased Safety Awareness Memory Description Short Term Impaired Gross Range of Motion Lower Extremity ROM Assessment Within Functional Limits Impairments limited DF on B ankles Strength Lower Extremity Strength Hip 4-/5 Knee 4-/5 Sensation Assessment Sensation Gross Sensation Right LE Impaired,Left LE Impaired Sensation Description Numbness Comments Sensation Comments numbness on B feet Muscle Tone Muscle Tone WNL Yes M6 PT-IP Treatment Start: 12/19/21 16:59 Freq: NEEDED Status: Active Protocol: Document 12/19/21 15:05 AB (Rec: 12/19/21 17:25 AB [id number]) Physical Therapy Treatment Education Education Provided Safety M7 PT-IP Assessment and Plan Start: 12/19/21 16:59 Freq: NEEDED Status: Active Protocol: Document 12/19/21 15:05 AB (Rec: 12/19/21 17:25 AB [email or web address]) PT Summary Assessment and Plan Potential Rehabilitation Potential Fair Status of Condition at Evaluation Evolving Summary Impairments Pain,ROM,Strength,Balance, Coordination,Sensation,Tone, Cognition,Bed Mobility, Transfers,Gait,Activity Tolerance Assessment Summary pt requiring min A with mobility using FWW and has decrease activity tolerance affecting mobility independence. pt has his daughter at home to assist him but not clear how much assistance pete can provide . will continue assess progress for safe d/c plan. Goals Bed Mobility Goal Standby Assistance Transfer Goal Standby Assistance,Front Wheeled Walker Gait Goal Standby Assistance,Front Wheel Walker Gait Distance 150 Other Goals ambulation using SPC 200 ft SBA up/down 4 steps L rail ascending SBA Days to Meet Goals 10 Frequency of Treatment Frequency Of Treatment Once a Day Treatment Plan Physical Therapy Treatment Plan Bed Mobility Training,Transfer Training,Gait Training, Therapeutic Exercise,Balance Retraining,Discharge Planning, Hot or Cold Pack,Neuromuscular Re-ed,Coordination Retraining Recommendations To Nursing Amount of Assist Needed 1 Person Assist Discharge Recommendations PT Discharge Recommendations Home with 05/04 Assist Available,Home Health,SNF Rehab,Home vs SNF Transportation Needs at Discharge Private Vehicle,Wheelchair/ Cabulance
[2021-12-19] MEDS: AZITHROMYCIN 500 MG in DEXTROSE 5% IN WATER 250 ML IV (16:30)
[2021-12-19] MEDS: INSULIN LISPRO 100 UNIT/ML 3ML VIAL SUBCUT ×2 (16:38→20:52)
[2021-12-19 17:13] LABS: Vancomycin Peak 20.3 ug/mL (20-40)
[2021-12-20] VITALS: BP 137/63; PULSE 104; RESP 20; TEMP 37.4; O2SAT 92
[2021-12-20] MEDS: FUROSEMIDE 40 MG/4 ML VIAL IV (00:09)
[2021-12-20] MEDS: PIPERACILLIN/TAZO 3.375 GM in SODIUM CHLORIDE 0.9% 100 ML 25 ML IV (03:35)
[2021-12-20 04:00] VITALS: BP 151/73; PULSE 96; RESP 17; TEMP 36.9; O2SAT 98
[2021-12-20 04:26] VITALS: PULSE 96; RESP 17; O2SAT 98
[2021-12-20] MEDS: ALBUTEROL 2.5 MG/3 ML NEB (ADULT) INH (04:26)
--- NOTE | 2021-12-20 06:19 | PC.NURSE ---
Shift Note: Patient was alert and orientedx3, appears very frustrated on how he was treated by the staff, he requested to speak with his attending MD and explain to him re: current condition. Vital signs are stable, denies pain/discomfort. Patient exhibited outburst of anger and tend to be rude in some situation, for instance, @0600H - patient called out and claiming that his IV site at right arm was bleeding, it was assessed and told him that it was not bleeding and just leaking and the IV dressing needs to be changed, patient suddenly got mad and thought that I was making argument with him but explained to him that I am giving him answer to his concern re: leaking IV site. IV site dressing changed, still with brisk blood return.
[2021-12-20] MEDS: ALBUTEROL/IPRATROPIUM 3 ML AMPUL INH ×2 (07:11→10:01)
[2021-12-20 07:12] VITALS: O2SAT 96
[2021-12-20 08:00] VITALS: BP 139/64; PULSE 97; RESP 24; TEMP 36.6; O2SAT 96
[2021-12-20 08:08] LABS: Vancomycin Trough 16.5 ug/mL (10-20)
[2021-12-20] MEDS: ENOXAPARIN 40 MG/0.4 ML SYRINGE SUBCUT (08:25)
[2021-12-20] MEDS: predniSONE 20 MG TABLET 40 MG PO (08:26)
[2021-12-20] MEDS: FERROUS SULFATE 325 MG TABLET PO (08:26)
[2021-12-20] MEDS: INSULIN LISPRO 100 UNIT/ML 3ML VIAL SUBCUT (08:26)
[2021-12-20 08:56] LABS: Add Manual Diff / Slide Review NO; Basophils Absolute Auto 100 /uL (0-100); Basophils Percent Auto 0.7 % (0-2); Eosinophils Absolute Auto 0 /uL (0-450); Eosinophils Percent Auto 0.3 % (2-4); Hematocrit 26.5 % (41-53); Hemoglobin 8.4 g/dL (13.5-17.5); Lymphocytes Absolute Auto 1400 /uL (1100-4500); Lymphocytes Percent Auto 11.4 % (25-40); Mean Corpuscular HGB Conc 31.6 % (30-36); Mean Corpuscular Volume 75.9 fL (80-100); Monocytes Absolute Auto 900 /uL (0-900); Monocytes Percent Auto 7.2 % (3-14); Neutrophils Absolute Auto 10000 /uL (1500-7000); Neutrophils Percent Auto 80.4 % (50-75); Platelet Count 370 X10^3/uL (150-400); White Blood Cell Count 12.4 X10^3/uL (4.5-11.0)
[2021-12-20 09:07] LABS: BUN Creatinine Ratio 38.2 (6-22); Blood Urea Nitrogen 29 mg/dL (9-20); Calcium 7.2 mg/dL (8.4-10.2); Carbon Dioxide 28 mmol/L (22-32); Chloride 98 mmol/L (98-107); Estimated Glomerular Filt Rate > 60.0 mL/min (>60); Glucose 345 mg/dL (80-110); HEMOLYSIS < 15 (0-50); Potassium 4.3 mmol/L (3.4-5.1); Sodium 128 mmol/L (137-145)
--- NOTE | 2021-12-20 09:40 | P.DS_ITS ---
History of Present Illness History of Present Illness Date Patient Seen: 12/20/21 Time Patient Seen: 09:40 Chief complaint: altered mental status Narrative: Per Dr. Millan, Mr. Armando is a 61M with PMH DM on insulin, chronic bilateral diabetic foot wounds, COPD on 2L O2, HTN, HL who presents altered and short of breath. He has notably been admitted many times recently to [facility] for similar situations. He has had multiple recent visits to the [facility] in the last couple weeks, he left the hospital on 12/17 as there were no beds. He was admitted with pneumonia, copd, acute on chronic hypoxic respiratory failure and poor diabetes control. Per the notes he is very noncompliant with treatment. He apparently was COVID positive first on November 13, 2021, he is unvaccinated. He is a very poor historian and can provide very little details. Apparently he has had issues with glucose control at home which is common for him. His family reported he had a blood sugar of 600, they gave him 20U novolog and was then 16. He was unresponsive. Apparently his dose of insulin at home is 50U lantus in PM and 20U novolog in AM per old records. He was also short of breath. He was hypoxemic when EMS arrived, placed on 4L, then remained hypoxemic in ED. In the ED workup was done, vitals notable for hypoxemia on arrival and high blood pressure. Labs notable for WBC 16.6, hgb 8.9. Glucose 33. Creatinine 0.62. BNP 6700. COVID positive. Procal 0.50. A1c 10.7. UA negative. CT head with no acute process. CTA chest with patchy bilateral pulmonary infiltrates and large left pleural effusion. As many records were not available, he was initially ordered for remdesivir, dexamethasone, zosyn. He was started IV dextrose due to his blood sugars and they improved. He was placed on heated high flow, he had 1600L drained from left lung in thora, and he was given IV lasix. He was admitted for further treatment. ? PMH: Type 2 Diabetes on insulin, poorly controlled, chronic diabetic wounds, CHFpEF, HTN, COPD on home oxygen, loculated pleural effusion, hep c s/p t reatment Social history: long time smoker, says recently stopped, but notes have noted daily smoking 0.5-1 pack daily since he was 16 Family history: Mother with COPD, DM Discharge Providers Provider Date of admission: 12/18/21 13:34 Discharge Date: 12/20/21 Consults: 12/18/21 15:36 Consult to Tele-surgical pathologist Routine Comment: Consulting Provider: [facility] [employer] Reason for consultation: Regulatory Specialist services Has provider been notified: Yes 12/19/21 13:24 Consult to Occupational Therapy Evaluate & Treat Comment: Physician Instructions: Evaluate and treat Consult to Physical Therapy Evaluate & Treat Comment: Physician Instructions: Evaluate and Treat Discharge provider: Mark Cisse DO Summary Hospital Course Discharge Diagnosis: 1. Acute on chronic hypoxemic respiratory failure from the etiologies noted below: ---acute on chronic COPD exacerbation ---acute on chronic diastolic heart failure AND ---bacterial pneumonia ---large left pleural effusion 2. Type 2 Diabetes, on insulin, with hypoglycemia 3. Chronic lower extremity wounds 4. COVID positive 5. Active smoker 6. Anemia, secondary to iron deficiency Hospital Course: This is a 61-year-old male with a history of COPD, diastolic heart failure, difficult to manage type 2 diabetes with hyper and hypoglycemic episodes, active smoker who was admitted for acute on chronic hypoxic respiratory failure due to a number of issues that were found. These include an acute on chronic COPD exacerbation, acute on chronic diastolic heart failure, a large left pleural effusion and a probable bacterial pneumonia in addition to a positive COVID PCR. For his COPD exacerbation he was given nebulizer therapies and will complete a course of oral prednisone at home. He was diuresed initially as well for diastolic heart failure exacerbation and then transition to his oral diuretic on discharge. Echocardiogram showed an EF of 50-55% with no focal wall motion abnormalities. He was noted to have a large left pleural effusion, possibly loculated. He did undergo thoracentesis, however no fluid was saved for fluid analysis. Repeat CT imaging showed minimal residual fluid, and given his marked respiratory improvement there was not a need for repeat thoracentesis at this time. There was known mass noted on repeat CT. Is thought less likely that his respiratory symptoms were due to COVID, but he potentially had a bacterial pneumonia and was treated with very broad-spectrum antibiotics which will be narrowed to Augmentin at the time of discharge to complete a course of therapy at home. His blood sugars varied widely. Initially Lantus was held given severe hypoglycemia, but on the day of discharge is was restarted at 10 units given consistent blood sugars in the 3-4 hundreds. To avoid hypoglycemia this will be continued as an outpatient and recommend further titration upward with his primary care provider. He was also instructed to reduce his sliding scale at home of short-acting insulin by 1/2, also to avoid possible hypoglycemia. The patient has chronic lower extremity wounds, and is still an active smoker. Outpatient follow-up with Wound Care is recommended for his lower extremity wo unds. They did not appear actively infected. He was counseled on smoking cessation. He appears to have a chronic anemia as well, iron studies were sent and did was consistent with an iron deficiency anemia and oral iron was started. It does appear that he was on this is an outpatient and should continue this at home. Patient was seen by physical and occupational therapies. He was discharged home with home health referral. Time Spent with Patient Time spent: Greater than 30 minutes Exam Vital Signs (past 8 hours): - 12/20/21 04:00 12/20/21 04:26 12/20/21 07:12 Temperature 98.4 F Pulse Rate 96 H 96 H Respiratory Rate 17 17 Blood Pressure 151/73 H Pulse Oximetry 98 98 96 12/20/21 08:00 Temperature 98 F Pulse Rate 97 H Respiratory Rate 24 Blood Pressure 139/64 Pulse Oximetry 96 Fraction of Inspired Oxygen 35 Oxygen Delivery Method Nasal Cannula Oxygen Flow Rate 0 Narrative Exam Narrative: GEN: no acute distress, chronically ill appearing, appears older than stated age HEENT: moist mucous membranes, PERRL NECK: trachea midline, no JVD CV: regular rate and rhythm, no murmurs PULM: CTA bilaterally, slight decreased in bilateral lung bases. ABD: soft, nontender, nondistended, no organomegaly EXT: warm and well perfused, with severe chronic wounds of lower extremities that appear severe but no active infection NEURO: awake and alert, oriented. No focal deficits. Objective Labs Result Diagrams: 12/20/21 08:30 12/20/21 08:30 Labs: Laboratory Results - last 24 hr 12/19/21 12/19/21 12/20/21 10:59 16:27 07:30 WBC RBC Hgb Hct MCV MCH MCHC RDW Plt Count Neut % (Auto) Lymph % (Auto) Custer % (Auto) Eos % (Auto) Baso % (Auto) Neut # (Auto) Lymph # (Auto) Custer # (Auto) Eos # (Auto) Baso # (Auto) Sodium Potassium Chloride Carbon Dioxide BUN Creatinine Estimated GFR BUN/Creatinine Ratio Glucose Calcium Vancomycin Peak 20.3 Vancomycin Trough 16.5 SARS-CoV-2 (PCR) Negative 12/20/21 12/20/21 08:30 08:30 WBC 12.4 H RBC 3.50 L Hgb 8.4 L Hct 26.5 L MCV 75.9 L MCH 24.0 L MCHC 31.6 RDW 19.0 H Plt Count 370 Neut % (Auto) 80.4 H Lymph % (Auto) 11.4 L Custer % (Auto) 7.2 Eos % (Auto) 0.3 L Baso % (Auto) 0.7 Neut # (Auto) 36468 H Lymph # (Auto) 1400 Custer # (Auto) 900 Eos # (Auto) 0 Baso # (Auto) 100 Sodium 128 L Potassium 4.3 Chloride 98 Carbon Dioxide 28 BUN 29 H Creatinine 0.76 Estimated GFR > 60.0 BUN/Creatinine Ratio 38.2 H Glucose 345 H D Calcium 7.2 L Vancomycin Peak Vancomycin Trough SARS-CoV-2 (PCR) [facility] Social History household members: family Smoking Status: Former smoker alcohol intake: never Discharge Plan Discharge Plan Patient Disposition: Home Health Service Provider Discharge Comment: You were admitted to the hospital with pnuemonia. You're being sent an antibiotic to help with treatment. Please follow up with PCP as soon as possible for diabetes management. Your lantus dosing has been greatly reduced to avoid low blood sugars as these are more dangerous in the short term. You may need to increase this slowly. You should try and eat meals with consistent amounts of carbohydrates as well. I would cut your sliding scale short acting insulin in half for now as well. Discharge orders & Medications Prescriptions: New prednisone 20 mg Tablet 40 mg PO DAILY 3 Days Qty: 6 0RF amoxicillin-pot clavulanate 875-125 mg tablet 1 tab PO BID 3 Days Qty: 6 0RF Continued metformin 1,000 mg tablet 1,000 mg PO BID 0RF lisinopril 5 mg tablet 5 mg PO DAILY 0RF Label Comments: Take 1 tablet by mouth once a day albuterol sulfate 90 mcg/actuation HFA aerosol inhaler INHALATION 0RF insulin aspart U-100 [Novolog Flexpen U-100 Insulin] 100 unit/mL (3 mL) insulin pen SUBCUT 0RF Label Comments: Inject 5 unit subcutaneously three times a day before meals Atrovent HFA 17 mcg/actuation HFA aerosol inhaler INHALATION 0RF Label Comments: INHALE 1 PUFF BY MOUTH EVERY 6 HOURS NEEDED FOR SHORTNESS OF BREATH OR WHEEZING Changed Lantus Solostar U-100 Insulin 100 unit/mL (3 mL) insulin pen 10 unit SUBCUT DAILY Qty: 0 0RF Label Comments: Inject 50 unit subcutaneously every night gabapentin 300 mg capsule 300 mg PO DAILY Qty: 0 0RF furosemide 20 mg tablet 20 mg PO DAILY Qty: 0 0RF Diet/Activity/Treatments Diet: Diet as Tolerated and Carb-consistent/Diabetic Activity: As tolerated
[2021-12-20 10:01] VITALS: PULSE 96; RESP 17; O2SAT 96
[2021-12-20] MEDS: INSULIN GLARGINE 100 UNIT/ML 3ML PEN 10 UNIT SUBCUT (10:32)
--- NOTE | 2021-12-20 11:37 | OT.IP.EVAL ---
Current Diagnoses Acute and chronic respiratory failure with hypoxia (12/18/21) Hypoxemia (12/18/21) Occupational Therapy Inpatient Evaluation/Re-Eval M1 PT/OT-IP Prior Functional Status Start: 12/19/21 16:59 Freq: NEEDED Status: Active Protocol: Document 12/20/21 11:15 [facility] (Rec: 12/20/21 11:56 [facility] [id number]) Medical Review Prior Functional Status Medical History Reviewed Yes Communication able to make needs known Mobility and Gait pt stated that he has been in the hospital before (pt with dx Covid in november) and has only been back for for a few weeks but still has not recovered much and has difficulty functioning at home . stated that prior to that, he was independent with all mobilities and ambulation using a SPC; stated that he is able to ambulate inside the house but not so much outside; has been using home O2 05/04 Activities of Daily Living and IADL's Pt states prior his daughter and neighbor assist with IADL needs. Social History Household Members family Living Arrangements House Number of Floors (Floors) One Floor Number of Stairs To Enter/Railing? pt stated that he is renting a manufactured home 4 steps L rail to enter Home Environment Standard Height Toilet,Walk in Shower,Tub/Shower,Built-In Shower Seat Home Equipment Front Wheel Walker,Straight Cane,Hand Held Shower Additional Social History Comment pt lives with her daughter who assist him with house chores; stated that he also has a neighbors that comes in to assists with meals M2 OT-IP Current Condition Start: 12/20/21 11:42 Freq: Status: Active Protocol: Document 12/20/21 11:15 [facility] (Rec: 12/20/21 11:56 [facility] [id number]) Occupational Therapy Current Condition Current Condition Evaluation Date 12/20/21 Treatment Diagnosis respiratory failure Diagnosis Onset Date 12/18/21 M3 OT- IP Subjective and Pain Start: 12/20/21 11:42 Freq: Status: Active Protocol: Document 12/20/21 11:15 [facility] (Rec: 12/20/21 11:56 [facility] [id number]) OT- Subjective Occupational Therapy Visit Type Type Initial Evaluation Visit Start Time 11:15 Visit Stop Time 11:37 Total Visit Minutes 22 Occupational Therapy Visit Comments Patient Comments Pt being discharged and wanting to get dressed. Pt does not have any clothes here and nurse able to get paper clothing for him to wear. Pt not wanting to take off the pads from the heart monitor as pt wanting to do that himself at home with adhesive remover. Patient/Caregiver Goals TO go home. OT Pain Assessment Pain When Pain Assessed At Rest Pain Present Pain Present Denied Pain M4 OT- IP ADL's Start: 12/20/21 11:42 Freq: Status: Active Protocol: Document 12/20/21 11:15 [facility] (Rec: 12/20/21 11:56 [facility] [id number]) OT [id number] Comments OT Self-Feeding Comments Not at meal time. OT ADL-Grooming Comments OT Grooming Comments Pt states did prior. OT ADL-Oral Care Comments Oral Care Comments Pt states did prior on his own . OT ADL-Dressing General Eval Upper Body Dressing Ability Independent Lower Body Dressing Ability Standby Assistance Comments OT Dressing Comments SBA while pt able to stand to kavita pants over his hips. OT ADL-Toileting Comments OT Toileting Comments Pt states did on his own earlier. OT ADL-Bathing Comments OT Bathing Comments Suggested pt to have a shower chair at home to use due to decreased endurance and activity tolerance now. M5 OT- IP IADL's Start: 12/20/21 11:42 Freq: Status: Active Protocol: Document 12/20/21 11:15 [facility] (Rec: 12/20/21 11:56 [facility] [id number]) OT-Instrumental Activities of Daily Living Home Safety Awareness Awareness of Need for Assistance at Home Good Awareness Home Safety Comments Pt states to have his neighbor come and assist him more with needs. M6 OT- IP Functional Cognition Start: 12/20/21 11:42 Freq: Status: Active Protocol: Document 12/20/21 11:15 [facility] (Rec: 12/20/21 11:56 [facility] [id number]) Cognitive Factors Limiting Selfcare Function Cognitive Ability Level of Alertness Alert Patient Orientation Name,Place,Situation Attention Span Ability Capable of Focused Attention, Capable of Sustained Attention Ability to Follow Commands Able to Follow One Step Commands Cognitive Comments Cognitive Assessment Comments Increased time to process information. Pt also admits that it take his extra time to understand and follow directions. OT- Vision and Hearing OT- Hearing Assessment OT- Hearing Assessment WFL OT- Vision Assessment Visual Acuity Glasses For Reading M7 OT- IP Mobility and Balance Start: 12/20/21 11:42 Freq: Status: Active Protocol: Document 12/20/21 11:15 [facility] (Rec: 12/20/21 11:56 [facility] [id number]) OT-Transfer Assessment Sit to and From Stand Sit to and from Stand Standby Assistance Transfers Transfer Ability Standby Assistance Technique Transfer Destination Bed OT- Balance Assessment Sitting Balance and Reactions Static Sitting Balance Ability Good Dynamic Sitting Balance Ability Good Standing Balance and Reactions Static Standing Balance Ability Fair Dynamic Standing Balance Ability Fair M8 OT- IP Objective Assessments Start: 12/20/21 11:42 Freq: Status: Active Protocol: Document 12/20/21 11:15 [facility] (Rec: 12/20/21 11:56 [facility] [id number]) OT Gross Range of Motion Upper Extremity Range of Motion ROM Impairments grossly WFL OT Strength Comments Strength Comments At least 3-/5 per observation of transfers and dressing needs. OT-Muscle Tone Assessment Muscle Tone WNL Yes OT Sensation Assessment Edema Edema Comments min swelling in his arms and hands M9 OT- IP Assessment and Plan Start: 12/20/21 11:42 Freq: Status: Active Protocol: Document 12/20/21 11:15 [facility] (Rec: 12/20/21 11:56 [facility] [id number]) OT Summary Assessment and Plan Potential Rehabilitation Potential Good Analytic Complexity at Evaluation Low Summary OT Impairments Strength,Balance,Functional Cognition,Functional Mobility, Bathing,Activity Tolerance Progress Towards Goals Progressing Toward Goals Assessment Summary Pt main barriers are decreased activity tolerance and dynamic balance needs. Pt being discharged today and able to go over energy conservation strategies with pt and give pt LB dressing equipment or carpet cleaning technician, long handled shoe horn and sponge. Pt insistent on not having the heart monitor pads taken off as wanting to do it at home as wanting to use adhesive remover. Told pt that nursing has the adhesive remover but still refused. Pt would benefit from initial 24/7 assist/supervision and home health and shower chair. Goals Dressing Goal Independent Toileting Goal Independent Bathing Goal Standby Assistance Toilet Transfer Goal Independent Shower Transfer Goal Independent Days to Meet Goals 5 Frequency of Treatment Frequency Of Treatment Once a Day Treatment Plan OT Treatment Plan ADL Training,Functional Cognition Training,Functional Mobility,Patient/Family Education,Discharge Planning Discharge Recommendations OT Discharge Recommendations Home with 24/7 Assist Available,Home Health Home Equipment Needs shower chair Transportation Needs at Discharge Private Vehicle
--- NOTE | 2021-12-20 13:27 | CM.IDA ---
Initial DCP Assessment Note Pt is a 61 yo male, resident of [place], brought in via EMS for altered mental status, notes indicate PMH includes DM on insulin, chronic bilateral diabetic foot wounds, COPD on 2L O2, HTN, HL. per notes, patient is unvaccinated and still trying to recover from an initial C19 infection in November 2020. Patient admitted for management of Acute on chronic hypoxemic respiratory failure, Type 2 Diabetes, on insulin, with hypoglycemia. Patient considered very ill upon admission and Palliative medicine was recommended Patient wanting to go home and has been medically cleared today. MD recommending HH and patient agreeable PCP: [facility] Payer: [facility] Met w/patient to review DCP; patient eager to return home today, cleared by PT for this plan. Patient plans to have a family member pick him up. Patient states he has a PCP and plans to follow up with them. Requests [facility], states they had managed the dressing changes for a PICC line in the past Inquired if patient has FANNY care giving? Patient doesn't, states he had been indp. before getting C19 infection last month which has greatly decreased activity tolerance according to patient. Patient asks this SCIENTIFIC RESEARCH ASSOCIATE about securing a Pulse Ox, recommended by hospitalist. Suggested he ask HH RN upon their visit and/or PCP about this so that a Rx can be sent to any drug store...in hopes [facility] might cover (?) Patient appreciative. Went to complete this assessment note and [facility] referral and noted no PCP was listed in patient's chart. Placed call to patient's dtr Natalie and had to LM. Will need to know PCP before making this HH referral KEO Cheung Discharge Planning/Care Management CM Discharge Assessment Start: 12/20/21 13:10 Freq: Status: Discharge Protocol: Document 12/20/21 13:10 [facility] (Rec: 12/20/21 13:27 [facility] [id number]) Discharge Planning Assessment Assigned Item Processing Clerk KEO Plummer DPOA/Assigned Designee Name Natalie Armando dtr Contact Information [phone] Advance Directives? No History Provided By Patient Prior Living Arrangements House Household Members family Type of transporation used prior to Relies on Others admit Independent with ADL's No: Needs assist after initial C19 infection November Is patient alert and oriented? Yes Needs Assistance With Meal Prep,Managing Medications ,Home Chores / Shopping Patient/Family Preference Home with Home Health Barriers to Discharge No Comment Home w/dtr, chart indicates patient is not compliant with f/u care, diabetes management etc. Patient agreeable to HH care, denies additional needs from this SCIENTIFIC RESEARCH ASSOCIATE Discharge Plan Home with Home Health Transportation Arrangement Family Referrals Initiated Home Health Additional Comment Patient requests [facility], has had [facility] in the past Medicare Choice List Provided Yes SNF/HH Preference [facility]
== END 2021-12-20 12:11 | disposition home health service (06) | DRG 133 ==
LOC: ED 10:36 → AC 13:35 → ICU 14:21
PROVIDERS: Internal Medicine; Admitting Provider Internal Medicine; Emergency Provider Emergency Medicine; Referring Provider Emergency Medicine; Visit Provider Internal Medicine
DX: J96.21 Acute and chronic respiratory failure with hypoxia (principal); J15.212 Pneumonia due to Methicillin resistant Staphylococcus aureus; I11.0 Hypertensive heart disease with heart failure; I50.33 Acute on chronic diastolic (congestive) heart failure; J44.1 Chronic obstructive pulmonary disease with (acute) exacerbation; J90 Pleural effusion, not elsewhere classified; U07.1 COVID-19; E11.649 Type 2 diabetes mellitus with hypoglycemia without coma; F17.200 Nicotine dependence, unspecified, uncomplicated; D50.9 Iron deficiency anemia, unspecified; Z79.84 Long term (current) use of oral hypoglycemic drugs; Z28.310 Unvaccinated for COVID-19; Z99.81 Dependence on supplemental oxygen; Z79.4 Long term (current) use of insulin
CPT/HCPCS: 32555; 36415; 36600; 70450; 71045; 71250; 71275; 80048; 80053; 80202; 80305; 80320; 80329; 81001; 82550; 82805; 82962; 83036; 83540; 83550; 83605; 83735; 83880; 84145; 84443; 84484; 85025; 85379; 85610; 85730; 87040; 87070; 87077; 87147; 87186; 87205; 87635; 93005; 93010; 93306; 94640; 94762; 96365; 96366; 96367; 96368; 96375; 97162; 97166; 99285; C9803; G0480; J1100; J1650; J1815; J1940; J2543; J3370; J3475; J7613

== ENCOUNTER 2022-01-28 00:40 | Emergency (ER) | payer OTHER, MEDICAID, SELFPAY ==
[2021-12-18 16:00] VITALS: BMI 26.9
[2022-01-28] VITALS (15 sets, daily range): BP systolic 114–160; BP diastolic 60–86; PULSE 98–111; RESP 16–22; TEMP 36.8–37; O2SAT 92–100; BMI 24.7
--- NOTE | 2022-01-28 00:57 | DI.US.S_ITS ---
PROCEDURE: US PERIPH VENOUS LOW EXTREM LT INDICATIONS: EDEMA TECHNIQUE: Real-time imaging, as well as color and pulse Doppler interrogation, were performed of the lower extremity deep veins from the inguinal ligament to the popliteal fossa. COMPARISON: None. FINDINGS: The common femoral, femoral and popliteal veins are normally compressible, and free of intraluminal thrombus. Color and pulse Doppler demonstrate normal phasic intraluminal flow. There is normal augmentation response to distal compression maneuver. There is a cystic collection in the popliteal fossa measuring 6.3 x 3.3 x 1.8 cm suggestive of a Anthony's cyst. IMPRESSION: 1. No evidence of deep venous thrombosis in the left lower extremity. Dictated by: Nick Russell M.D. on 01/28/2022 at 1:50 Approved by: Nick Russell M.D. on 01/28/2022 at 1:51
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
[2022-01-28 01:59] LABS: Hematocrit 26.4 % (41-53); Hemoglobin 8.2 g/dL (13.5-17.5); Mean Corpuscular HGB Conc 30.9 % (30-36); Mean Corpuscular Hemoglobin 22.2 PG (26-34); Platelet Count 443 X10^3/uL (150-400); Red Blood Cell Count 3.67 X10^6/uL (4.5-5.9); Red Cell Distribution Width 19.1 % (11.6-14.8); White Blood Cell Count 9.8 X10^3/uL (4.5-11.0)
[2022-01-28 02:02] LABS: INR 1.3 (0.9-1.3); Prothrombin Time 15.2 SECONDS (10.1-12.7)
[2022-01-28 02:07] LABS: Alanine Aminotransferase 23 IU/L (<50); Albumin 2.3 g/dL (3.5-5.0); Albumin Globulin Ratio 0.5 (1.0-2.8); Alkaline Phosphatase 226 U/L (38-126); Aspartate Aminotransferase 31 IU/L (17-59); BUN Creatinine Ratio 24.6 (6-22); Bilirubin Total 0.3 mg/dL (0.2-1.3); Blood Urea Nitrogen 15 mg/dL (9-20); Calcium 7.5 mg/dL (8.4-10.2); Carbon Dioxide 28 mmol/L (22-32); Chloride 102 mmol/L (98-107); Estimated Glomerular Filt Rate > 60 mL/min (>60); Globulin 5.1 g/dL (1.7-4.1); Glucose 218 mg/dL (80-110); HEMOLYSIS < 15 (0-50); Potassium 3.7 mmol/L (3.4-5.1); Sodium 134 mmol/L (137-145); Total Protein 7.4 g/dL (6.3-8.2)
[2022-01-28 02:26] LABS: COVID19 -Nasal RAPID Negative (Negative)
[2022-01-28 03:05] LABS: Neutrophils Absolute Manual 7840 /uL (3000-5900); Total Cells Counted 100
[2022-01-28 03:06] LABS: Anisocytosis 2+; Hypochromasia 2+; Microcytosis 1+
[2022-01-28] MEDS: BACITRACIN 28 GM OINT 1 APPLIC TOP (05:34)
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
--- NOTE | 2022-01-28 07:42 | PC.NURSE ---
pt shares that he im not walking very well any more pt describes he lives alone and does not have caregivers or help. sometimes a sister and law comes but patient is providing all care, cleaning, cooking, and no longer able to walk well. pt states he has a scooter at home, an electric one
--- NOTE | 2022-01-28 09:05 | PC.NURSE ---
Brealfast meal tray delivered to patient. He did not like the items on his tray so he did not eat any of the eggs/sausage/chinese toast and sliced oranges. Pt kept the coffee and was provided a vanilla Ensure meal replacement.
[2022-01-28] MEDS: INSULIN LISPRO 100 UNIT/ML 3ML VIAL SUBCUT ×3 (10:09→17:06)
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
--- NOTE | 2022-01-28 12:00 | PC.NURSE ---
Spoke with pt and attempted to call daughter to talk about discharge plan and home health setup. No answer, left message. Notified mental health social worker of attempts and that pt home number not in service. He requested to talk to Edna, sister in law, but does not know her number.
--- NOTE | 2022-01-28 12:46 | PT-IP ANOTE ---
EMR reviewed and talked to pt. Pt. stated that his daughter is at home and will be able to assist if needed but he usually does not ask for help. stated that he has a ramp to enter the house and that he has not been walking for awhile but does not remember when the last time was. stated that he has an electric scooter that he uses and can drive all the way to his room. he only transfers and uses a bedside commode for toileting. Asked pt to stand and do transfers and ambulation with PT and pt refused. educated pt on mobility assessment and pt continues to refuse. stated that he will have pain on his legs and had enough of pain and does not want to move with PT. informed correctional casework specialist regarding pt's home set up/PLOF and pt's refusal.
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
--- NOTE | 2022-01-28 17:07 | PC.NURSE ---
Dressings to both legs changed. Pt sister in law Edna here to take pt home.
--- NOTE | 2022-01-28 17:38 | PC.NURSE ---
Discharge instructions and [facility] wound care instructions gone over with pt and Edna. Supplies given for dressing changes also given. Pt and Edna confirmed understanding of follow up care/home health referral in process. Both deny further questions/needs. Encourage call to PCP in am to ensure follow up. Pt reports he already has an appointment scheduled for the . Also given information on medicaid transport for healthcare appointments. Edna reports she is agreeable to being a second contact for pt with home health/appointments since pt does not have a phone and daughter Rosa states that her phone is sometimes unreliable.
== END 2022-01-28 17:43 | disposition home or self-care (01) ==
PROVIDERS: Emergency Medicine; Emergency Provider Emergency Medicine
DX: T25.292A Burn of second degree of multiple sites of left ankle and foot, initial encounter (principal); T25.191A Burn of first degree of multiple sites of right ankle and foot, initial encounter; E11.40 Type 2 diabetes mellitus with diabetic neuropathy, unspecified; Z79.4 Long term (current) use of insulin; Z79.84 Long term (current) use of oral hypoglycemic drugs; Z20.822 Contact with and (suspected) exposure to COVID-19
CPT/HCPCS: 36415; 80053; 82962; 85025; 85610; 87635; 93971; 96372; 99283; 99284; C9803; J1815

== ENCOUNTER 2022-02-02 19:16 | Inpatient (IN) | payer OTHER, MEDICAID, SELFPAY ==
[2021-12-18 16:00] VITALS: BMI 26.9
[2022-02-02 19:29] VITALS: BP 152/75; PULSE 86; RESP 20; TEMP 35.6; O2SAT 94; BMI 23.5
--- NOTE | 2022-02-02 19:29 | PC.NURSE ---
BG 87 upon arrival to ER
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
[2022-02-02 19:54] LABS: Add Manual Diff / Slide Review NO; Basophils Absolute Auto 0 /uL (0-100); Basophils Percent Auto 0.2 % (0-2); Eosinophils Absolute Auto 0 /uL (0-450); Hematocrit 24.3 % (41-53); Hemoglobin 7.8 g/dL (13.5-17.5); Lymphocytes Absolute Auto 600 /uL (1100-4500); Mean Corpuscular HGB Conc 31.9 % (30-36); Mean Corpuscular Hemoglobin 22.3 PG (26-34); Monocytes Absolute Auto 500 /uL (0-900); Monocytes Percent Auto 4.3 % (3-14); Neutrophils Absolute Auto 11000 /uL (1500-7000); Neutrophils Percent Auto 90.5 % (50-75); Platelet Count 433 X10^3/uL (150-400); Red Blood Cell Count 3.48 X10^6/uL (4.5-5.9); Red Cell Distribution Width 19.6 % (11.6-14.8); White Blood Cell Count 12.2 X10^3/uL (4.5-11.0)
--- NOTE | 2022-02-02 20:01 | PC.NURSE ---
After locating a temporal temp probe, pt temp is 96.1 degrees. Multiple warm blankets provided to pt. Pt remains alert and oriented.
[2022-02-02 20:08] VITALS: BP 140/80; PULSE 83; RESP 17; O2SAT 100
--- NOTE | 2022-02-02 20:08 | PC.NURSE ---
2000 BG is 87. Will recheck in 30 minutes.
[2022-02-02 20:10] LABS: Alanine Aminotransferase 19 IU/L (<50); Albumin 2.1 g/dL (3.5-5.0); Albumin Globulin Ratio 0.5 (1.0-2.8); Alkaline Phosphatase 202 U/L (38-126); Aspartate Aminotransferase 25 IU/L (17-59); Bilirubin Total 0.4 mg/dL (0.2-1.3); Blood Urea Nitrogen 17 mg/dL (9-20); Calcium 7.3 mg/dL (8.4-10.2); Carbon Dioxide 25 mmol/L (22-32); Chloride 103 mmol/L (98-107); Estimated Glomerular Filt Rate > 60 mL/min (>60); Globulin 4.5 g/dL (1.7-4.1); Glucose 97 mg/dL (80-110); HEMOLYSIS < 15 (0-50); Potassium 3.5 mmol/L (3.4-5.1); Sodium 134 mmol/L (137-145); Total Protein 6.6 g/dL (6.3-8.2)
--- NOTE | 2022-02-02 20:33 | PC.NURSE ---
2030 BG is 107.
--- NOTE | 2022-02-02 21:25 | PC.NURSE ---
2100 BG is 109.
--- NOTE | 2022-02-02 22:00 | PC.NURSE ---
Upon BG and temperature recheck, BG at 2200 is 103. Pt temp on temporal probe is 95.1, but rectal thermometer shows 91.8. Pt placed on bear hugger immediately and temperature davidson catheter was placed per RON ANDRADE order. New IV established but blood not able to be obtained from this. Lab to come draw pt for additional labs.
--- NOTE | 2022-02-02 22:12 | DI.RAD.S_ITS ---
PROCEDURE: XR CHEST 1V INDICATIONS: sepsis TECHNIQUE: One view of the chest was acquired. COMPARISON: [facility], CR, XR CHEST 1V, 12/19/2021, 12:21. FINDINGS: Surgical changes and devices: None. Lungs and pleura: There is a moderate left pleural effusion with left basilar compressive atelectasis or consolidation. There is interval decrease in patchy bilateral airspace opacities seen on the prior study with residual indistinct mild ground-glass opacities. There is also a small but decreased right pleural effusion. Mediastinum: The left heart contours are obscured. Bones and chest wall: No suspicious bony lesions. Overlying soft tissues appear unremarkable. IMPRESSION: 1. Moderate size left pleural effusion with associated left basilar compressive atelectasis or consolidation. 2. Decrease in bilateral patchy airspace opacities likely reflecting resolving pneumonia. 3. Decreased but persistent small right pleural effusion. Dictated by: Nick Russell M.D. on 02/02/2022 at 23:31 Approved by: Nick Russell M.D. on 02/02/2022 at 23:33
[2022-02-02 22:19] VITALS: TEMP 33.2
[2022-02-02 22:42] LABS: Procalcitonin 0.42 ng/mL (<0.5)
[2022-02-02 23:12] LABS: COVID19 -Nasal RAPID Negative (Negative)
--- NOTE | 2022-02-02 23:31 | PC.NURSE ---
Lab unable to obtained blood cultures on pt. 3rd IV placed at this time for blood cultures and lactic acid level. Pt 93.2 degrees now per temp lety.
[2022-02-02 23:32] VITALS: TEMP 34
[2022-02-03] VITALS (10 sets, daily range): BP systolic 124–146; BP diastolic 59–81; PULSE 97–108; RESP 20–34; TEMP 34.6–36.7; O2SAT 86–98; BMI 25.4
--- NOTE | 2022-02-03 00:19 | PC.NURSE ---
BG 133. Dr. Carrasco at bedside.
[2022-02-03 01:18] LABS: Hematocrit 25.4 % (41-53); Hemoglobin 7.8 g/dL (13.5-17.5)
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
--- NOTE | 2022-02-03 01:45 | PC.NURSE ---
Pt having a coughing spell after sipping on hot chocolate. Pt encouraged to continue to cough if able. Nothing to suction at this time, pt still able to speak, oxygen levels stable still on RA. When asked what happened, the pt stated too much sugar in the hot cocoa. Hot chocolate discarded after this episode, water provided to pt and pt tolerated PO hydration without difficulties.
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
--- NOTE | 2022-02-03 02:44 | PC.NURSE ---
BG 125.
[2022-02-03] MEDS: PIPERACILLIN/TAZO 4.5 GM in SODIUM CHLORIDE 0.9% 100 ML IV (02:55)
--- NOTE | 2022-02-03 03:05 | PC.NURSE ---
sánchez escobar removed from pt.
[2022-02-03 03:57] LABS: Hemoglobin A1C% w Est Avg Glu 9.1 % (4.0-6.0)
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
[2022-02-03] MEDS: SODIUM CHLORIDE 0.9% 1,000 ML 100 ML IV (04:39)
[2022-02-03] MEDS: VANCOMYCIN 1,500 MG/300 ML PIGGYBACK 150 MG IV (06:05)
[2022-02-03] MEDS: KETOROLAC 30 MG/ML VIAL 15 MG IV (06:17)
[2022-02-03 07:02] LABS: Influenza A - CEPHEID Flu A NEGATIVE (NEGATIVE); Influenza B - CEPHEID Flu B NEGATIVE (NEGATIVE)
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
[2022-02-03] MEDS: ENOXAPARIN 40 MG/0.4 ML SYRINGE SUBCUT (08:33)
[2022-02-03] MEDS: INSULIN LISPRO 100 UNIT/ML 3ML VIAL SUBCUT (08:48)
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
--- NOTE | 2022-02-03 10:27 | PC.NURSE ---
Addendum entered by Cornelio Esquivel R.N. 02/03/22 14:24: 11:00 transport here [facility]. Pt transfered to [facility] , report given. Report sent to [facility] Pt on his way to [facility]. Original Note: Pt alert, weak, follows commands, able to make needs known. Mariama, associate dean of students taking pics and doing dressing change to bilateral feet and lower extremities. Pt readying for transfer to [facility]. Transfer time approximately 11:00
[2022-02-03 10:38] LABS: Add Manual Diff / Slide Review NO; Basophils Absolute Auto 100 /uL (0-100); Basophils Percent Auto 0.4 % (0-2); Eosinophils Absolute Auto 0 /uL (0-450); Eosinophils Percent Auto 0.3 % (2-4); Lymphocytes Absolute Auto 900 /uL (1100-4500); Lymphocytes Percent Auto 6.7 % (25-40); Mean Corpuscular HGB Conc 30.8 % (30-36); Mean Corpuscular Hemoglobin 21.9 PG (26-34); Monocytes Absolute Auto 700 /uL (0-900); Neutrophils Absolute Auto 12200 /uL (1500-7000); Neutrophils Percent Auto 87.6 % (50-75); Platelet Count 435 X10^3/uL (150-400); Red Cell Distribution Width 19.3 % (11.6-14.8); White Blood Cell Count 13.9 X10^3/uL (4.5-11.0)
[2022-02-03 10:41] LABS: Hemoglobin 6.8 g/dL (13.5-17.5)
[2022-02-03 10:45] LABS: BUN Creatinine Ratio 27.9 (6-22); Blood Urea Nitrogen 17 mg/dL (9-20); Calcium 7.1 mg/dL (8.4-10.2); Carbon Dioxide 26 mmol/L (22-32); Chloride 103 mmol/L (98-107); Estimated Glomerular Filt Rate > 60 mL/min (>60); Glucose 131 mg/dL (80-110); HEMOLYSIS 28 (0-50); Magnesium 1.5 mg/dL (1.6-2.3); Potassium 3.6 mmol/L (3.4-5.1); Sodium 134 mmol/L (137-145)
--- NOTE | 2022-02-03 12:29 | CM.DANOTE ---
DCP: Payor: PW with secondary Medicaid PCP: Mark Medrano MD Pt discharged before [facility] was able to assess. All assessment done via chart review. Pt transferred to [facility] via transportation service. Needing treatment for rios to his lower extremity. Sneha Smith RN/PHILIP Discharge Planning/Care Management CM Discharge Assessment Start: 02/03/22 12:26 Freq: Status: Discharge Protocol: Document 02/03/22 12:26 AJ (Rec: 02/03/22 12:29 [id number]) Discharge Planning Assessment Assigned Research Asst Sneha Smith RN/PHILIP Advance Directives? No Advance Directives on File No History Provided By Medical Record Prior Living Arrangements House Household Members family Comment Electric scooter Patient/Family Preference Home with Home Health Comment Home w/dtr, chart indiciates patient is not compliant with f/u care, diabetes management etc. Patient agreeable to care, denies additional needs from this PRIVATE ADVISOR Discharge Plan Transfer to Higher Level of Care Transportation Arrangement Transfer services Review Status In Process Please Provide Date Initial DC 02/03/22 Assessment Was Performed Next Review Type Continued Stay Review
[2022-02-04 09:58] LABS: Acinetobacter baumannii Not Detected (Not Detect); Candida albicans Not Detected (Not Detect); Candida glabrata Not Detected (Not Detect); Candida krusei Not Detected (Not Detect); Candida parapsilosis Not Detected (Not Detect); Candida tropicalis Not Detected (Not Detect); E. coli Not Detected (Not Detect); Enterobacter cloacae complex Not Detected (Not Detect); Enterobacteriaceae species Not Detected (Not Detect); Enterococcus species Not Detected (Not Detect); Haemophilus influenzae Not Detected (Not Detect); Listeria monocytogenes Not Detected (Not Detect); Methicillin-resistant gene Detected (Not Detect); Neisseria meningitidis Not Detected (Not Detect); Proteus species Not Detected (Not Detect); Pseudomonas aeruginosa Not Detected (Not Detect); Serratia marcescens Not Detected (Not Detect); Staphylococcus species Detected (Not Detect); Streptococcus agalactiae (Gr B Not Detected (Not Detect); Streptococcus pneumonia Not Detected (Not Detect); Streptococcus pyogenes (Gr A) Not Detected (Not Detect); Streptococcus species Not Detected (Not Detect)
== END 2022-02-03 10:56 | disposition short-term general hospital (02) | DRG 720 ==
LOC: ED 19:38 → AC 02-03 02:49
PROVIDERS: Admitting Provider Nurse Practitioner Family; Emergency Provider Emergency Medicine; PCP Family Medicine; Referring Provider Nurse Practitioner Family; Visit Provider Nurse Practitioner Family
DX: A41.9 Sepsis, unspecified organism (principal); L03.116 Cellulitis of left lower limb; L02.612 Cutaneous abscess of left foot; T25.222A Burn of second degree of left foot, initial encounter; T25.221A Burn of second degree of right foot, initial encounter; E11.649 Type 2 diabetes mellitus with hypoglycemia without coma; E11.42 Type 2 diabetes mellitus with diabetic polyneuropathy; J44.9 Chronic obstructive pulmonary disease, unspecified; X11.8XXA Contact with other hot tap-water, initial encounter; Z99.81 Dependence on supplemental oxygen; Z79.4 Long term (current) use of insulin; Z87.891 Personal history of nicotine dependence; Z86.16 Personal history of COVID-19; Z20.822 Contact with and (suspected) exposure to COVID-19
CPT/HCPCS: 36415; 71045; 80048; 80053; 82962; 83036; 83605; 83735; 84145; 85014; 85018; 85025; 86850; 86900; 86901; 87040; 87070; 87077; 87147; 87150; 87186; 87205; 87502; 87635; 87797; 93005; 94760; 96365; 99285; C9803; J1650; J1815; J1885; J2543